=== PATIENT | female | born 1955 | race Caucasian/White ===

== ENCOUNTER 2017-06-13 10:53 | Outpatient (CLI) | payer OTHER ==
[2017-06-13 19:11] LABS: BASOPHILS % (AUTO) 0.9 %; EOSINOPHILS % (AUTO) 0.3 %; HCT - HEMATOCRIT 48.3 % (37.0-47.0); HGB - HEMOGLOBIN 15.9 g/dL (12.0-16.0); LYMPHOCYTES # (AUTO) 1.1 10^3/uL (1.5-3.5); LYMPHOCYTES % (AUTO) 21.1 %; MEAN CORPUSCULAR HEMOGLOBIN 32.2 pg (27.0-31.0); MEAN CORPUSCULAR VOLUME 97.4 fL (81.0-99.0); MEAN PLATELET VOLUME 8.2 fL (7.9-10.8); MONOCYTES # (AUTO) 0.4 10^3/uL (0.0-1.0); MONOCYTES % (AUTO) 8.3 %; NEUTROPHILS # (AUTO) 3.5 10^3/uL (1.5-6.6); NEUTROPHILS % (AUTO) 69.4 %; RED BLOOD COUNT 4.96 10^6/uL (4.20-5.40); RED CELL DISTRIBUTION WIDTH 13.7 % (12.0-15.0); UNCORRECTED WHITE BLOOD COUNT 5.1 x10^3/uL; WHITE BLOOD COUNT 5.1 x10^3/uL (4.8-10.8)
[2017-06-13 19:18] LABS: ALBUMIN/GLOBULIN RATIO 1.4 (1.0-2.2); BILIRUBIN,TOTAL 0.9 mg/dL (0.2-1.0); BUN - BLOOD UREA NITROGEN 11 mg/dL (6-20); CALCIUM 9.8 mg/dL (8.5-10.3); CARBON DIOXIDE - CO2 25 mmol/L (21-32); CHLORIDE 104 mmol/L (101-111); CHOL/HDL RATIO 2.8 (<4.4); CHOLESTEROL 295 mg/dL; CREATININE 0.7 mg/dL (0.4-1.0); GFR - MDRD 85 (>89); GLUCOSE 101 mg/dL (70-100); HDL CHOLESTEROL 107 mg/dL; LDL/HDL RATIO 1.5 (<4.4); POTASSIUM 3.9 mmol/L (3.5-5.0); SODIUM 140 mmol/L (135-145); TRIGLYCERIDES 162 mg/dL; VLDL CHOLESTEROL 32 mg/dL
== END 2017-06-13 10:54 | disposition home or self-care (01) ==
LOC: LAB.WCP 10:53
PROVIDERS: ATTEND Family Medicine
DX: R94.5 Abnormal results of liver function studies (principal); E78.5 Hyperlipidemia, unspecified; I10 Essential (primary) hypertension
CPT/HCPCS: 36415; 80053; 80061; 81001; 85025

== ENCOUNTER 2017-06-17 10:30 | Outpatient (CLI) | payer OTHER ==
[2017-06-17 20:16] LABS: BILIRUBIN,URINE NEGATIVE (NEGATIVE); PH,URINE 5.5 PH (5.0-7.5)
[2017-06-17 20:47] LABS: WBC,URINE 0-3 /HPF (0-5)
== END 2017-06-17 10:31 | disposition home or self-care (01) ==
LOC: LAB.WCP 10:30
PROVIDERS: ATTEND Family Medicine
DX: I10 Essential (primary) hypertension (principal)
CPT/HCPCS: 81001

== ENCOUNTER 2017-06-24 10:27 | Outpatient (CLI) | payer OTHER ==
--- NOTE | 2017-07-01 15:51 | Mammography Report ---
DIGITAL SCREENING MAMMOGRAM: 06/24/2017 CLINICAL INDICATION: A 61-year-old, for screening. COMPARISON: The patient reports having had previous mammograms, but outside films cannot be located. If records in your office indicate where the films were performed, we would be happy to try to obtain them for direct comparison. Otherwise, this will serve as a new baseline. TECHNIQUE: Routine CC and MLO projections were obtained of the breasts. FINDINGS: The breasts demonstrate scattered fibroglandular densities bilaterally. A few coarse, typi cate benign calcifications are present. No suspicious masses, clustered microcalcifications, or mireille ons of architectural distortion are identified. IMPRESSION: BENIGN FINDINGS. RECOMMENDATION: ROUTINE ANNUAL SCREENING UNLESS OTHERWISE CLINICALLY INDICATED. BIRADS CATEGORY 2-BENIGN FINDINGS. STANDARD QUALIFYING STATEMENTS 1. This examination was reviewed with the aid of Computer-Aided Detection (CAD). 2. A negative or benign imaging report should not delay biopsy if clinically suspicious findings are present. Consider surgical consultation if warranted. More than 5% of cancers are not identified by i maging. 3. Dense breasts may obscure an underlying neoplasm. JOB #: [id number] EXT JOB #:[id number]
== END 2017-06-24 10:28 | disposition home or self-care (01) ==
LOC: DI.N 10:27
PROVIDERS: ATTEND Family Medicine
DX: Z12.31 Encounter for screening mammogram for malignant neoplasm of breast (principal)
CPT/HCPCS: 77067

== ENCOUNTER 2018-03-01 13:36 | Outpatient (CLI) | payer OTHER | END 2018-03-01 13:37 | disposition EMS.NT | LOC: EMS 13:36 | PROVIDERS: ATTEND Surgery | DX: R45.89 Other symptoms and signs involving emotional state (principal) ==

== ENCOUNTER 2018-11-02 14:12 | Emergency (ER) | payer MEDICARE, OTHER ==
--- NOTE | 2018-11-02 14:48 | ED Physician Documentation ---
History of Present Illness - Stated complaint Stated Complaint: CONFUSION - Chief complaint Chief Complaint: Neuro - History obtained from History obtained from: Patient, Friend - History of Present Illness Timing: Unknown Pain level max: 0 Pain level now: 0 - Additonal information Additional information: Patient is a 63-year-old female who was brought in by her friend today for altered mental status. Friend reports that she is "talking gibberish". States that she is stating things that are not through and remembering things that did not happen. Friend states that she has fallen several times recently. Does have a history of alcoholism as well as drug abuse. They are unsure if she is drinking again or not. Her apparently in February of last year, patient was hospitalized at [facility] in [place] after that and had a heart attack followed by a stroke. Has [address] Unknown if she is taking her medications or not. Patient is unable to give any meaningful history at this point. Review of Systems Unable to obtain: AMS PD PAST MEDICAL HISTORY - Past Medical History Past Medical History: Yes Cardiovascular: Hypertension, [place] Neuro: CVA Psych: Depression - Past Surgical History Past Surgical History: Yes Cardiovascular: Coronary stent - Present Medications Home Medications: Ambulatory Orders Medication Instructions Recorded Confirmed Acetaminophen 650 mg PO ONCE 11/02/18 11/02/18 Carvedilol 25 mg PO BID 11/02/18 11/02/18 Clopidogrel [Plavix] 75 mg ORAL DAILY 11/02/18 11/02/18 Lisinopril [Prinivil] 20 mg PO DAILY 11/02/18 11/02/18 - Allergies Allergies/Adverse Reactions: Allergies Allergy/AdvReac Type Severity Reaction Status Date / Time No Known Drug Allergies Allergy Verified 11/02/18 14:23 - Social History Does the pt smoke?: No Smoking Status: Never smoker Does the pt drink ETOH?: Yes Does the pt have substance abuse?: No - Immunizations Immunizations are current?: No - POLST Patient has POLST: No PD ED PE NORMAL - Vitals Vital signs reviewed: Yes - General General: No acute distress, Well developed/nourished, Other (alert, oriented to person and place) - HEENT HEENT: PERRL, Moist mucous membranes, Pharynx benign - Neck Neck: Supple, no meningeal sign - Cardiac Cardiac: RRR, Strong equal pulses - Respiratory Respiratory: No respiratory distress, Clear bilaterally - Abdomen Abdomen: Soft, Non tender, Non distended - Back Back: No spinal TTP - Derm Derm: Warm and dry - Extremities Extremities: No deformity, Normal ROM s pain, No edema - Neuro Neuro: academic support specialist 2-12 intact, No motor deficit, No sensory deficit Eye Opening: Spontaneous Motor: Obeys Commands Verbal: Confused GCS Score: 14 Results - Vitals Vitals: Vital Signs - 24 hr 11/02/18 11/02/18 11/02/18 14:21 15:12 16:00 Temperature 36.9 C Heart Rate 115 H 102 H 101 H Respiratory 18 22 22 Rate Blood Pressure 120/89 H 125/85 H 151/83 H O2 Saturation 96 95 96 11/02/18 11/02/18 11/02/18 16:51 17:08 17:46 Temperature 36.8 C Heart Rate 105 H 111 H 112 H Respiratory 21 19 24 Rate Blood Pressure 136/85 H 139/85 H 129/78 O2 Saturation 98 95 96 Oxygen O2 Source Room air - EKG (time done) 1457 Rate: Rate (enter#) (96) Rhythm: NSR [place]: Normal Intervals: Normal SC QRS: Normal Ischemia: Normal ST segments - Labs Labs: Laboratory Tests 11/02/18 11/02/18 11/02/18 15:00 15:00 15:00 WBC 15.2 H RBC 2.97 L Hgb 10.0 L Hct 30.7 L MCV 103.5 H MCH 33.6 H MCHC 32.5 RDW 14.2 Plt Count 276 MPV 7.6 L Neut # (Auto) 13.4 H Lymph # (Auto) 0.7 L Parke # (Auto) 0.9 Eos # (Auto) 0.0 Baso # (Auto) 0.1 Absolute Nucleated RBC 0.00 Nucleated RBC % 0.0 Sodium 139 Potassium 3.2 L Chloride 103 Carbon Dioxide 25 Anion Gap 11.0 BUN 47 H Creatinine 1.0 Estimated GFR (MDRD) 56 L Glucose 129 H Calcium 9.1 Total Bilirubin 1.0 AST 60 H ALT 30 Alkaline Phosphatase 63 Total Protein 7.3 Albumin 4.3 Globulin 3.0 Albumin/Globulin Ratio 1.4 Lipase 46 TSH 1.94 Salicylates < 6.0 Acetaminophen 21 Ethyl Alcohol < 5.0 - Rads (name of study) head CT Radiology: Prelim report reviewed, EMP read contemporaneously, See rad report (Intraparenchymal hematoma in the anteroinferior right frontal lobe and scattered subarachnoid hemorrhage with extension into the frontal horns of the bilateral lateral ventricles. Appearance and distribution are suspicious for aneurysmal bleed involving the anterior cerebral artery or anterior communicating artery. 2. Approximately 13 mm right to left anteroinferior midline shift/subfalcine herniation associated with the intraparenchymal hematoma. ) brain angio CT Radiology: Prelim report reviewed, EMP read contemporaneously, See rad report (No abnormal enhancement on the postcontrast CT head. No CT evidence of active extravasation to suggest active bleed. 3. No CTA evidence of hemodynamically significant stenosis, large vessel occlusion, acute dissection, aneurysm, or vascular malformation within extracranial or intracranial arteries. In particular, no aneurysm or vascular malformation to suggest etiology for hemorrhage. Concurrently obtained CTA of the neck is dictated separately. ) neck angio CT Radiology: Prelim report reviewed, EMP read contemporaneously, See rad report (No CTA evidence of hemodynamically significant stenosis, large vessel occlusion, acute dissection, aneurysm, or vascular malformation within extracranial arteries. 2. Concurrently obtained CTA head has been dictated separately. ) PD MEDICAL DECISION MAKING - ED course Complexity details: reviewed results, re-evaluated patient, considered differential, d/w patient, d/w software developer consultant ED course: 1550 - call placed to [facility] for transfer for spontaneous ICH. 1600 - Patient remains stable, GCS 14 no neuro changes 1610 - Prov Nsgy recommends transfer to [facility] 1640 - Dr. Madai Cuello (ICU) graciously accepts in transfer. COBRA forms filled out. 1645 - D/w neurosurgery at [facility] and they will consult upon arrival. Nicardipine used for blood pressure to keep SBP <140. 1645 - Patient continues to be altered. No neurological changes at this point. [facility] contacted for transfer - Critical Care Time(min): 50 Time Includes: Direct patient care, Reassess patient, Document care, Coordinate care, See progress note Data interpretation: See progress note Procedures included in critical care time: See progress note Procedures excluded from critical care time: See progress note Departure - Departure Disposition: 02 Transfer Acute Care Hosp Clinical Impression: Intracerebral hemorrhage Qualifiers: Intracerebral hemorrhage etiology: nontraumatic Cerebral hemorrhage location: unspecified cerebral location Laterality: right Qualified Code(s): I61.9 - Nontraumatic intracerebral hemorrhage, unspecified Condition: Stable Discharge Date/Time: 11/02/18 18:04 NIHSS - Time Time: 14:42 - Level of Consciousness Level of consciousness: (0) Alert, Keenly responsive LOC Questions: (1) Answers one Q correctly LOC Commands: (0) Performs both correctly - Gaze Best Gaze: (0) Normal - Visual Visual: (0) No loss - Facial Palsy Facial Palsy: (0) Normal, symmetrical movement - Motor Arms (both separate) Motor Arm (right): (0) No drift Motor Arm (left): (0) No drift - Motor Legs (both separate) Motor Leg (right): (0) No drift Motor Leg (left): (0) No drift - Limb Ataxia Limb Ataxia: (0) Absent - Sensory Sensory: (0) Normal - Best Language Best Language: (0) No aphasia - Dysarthria Dysarthria: (0) Normal - Extinction and Inattention (formally neg Extinction and inattention: (0) No abnormality - Total Score/Results Total Score/Result: 1
[2018-11-02 15:12] LABS: BASOPHILS # (AUTO) 0.1 10^3/uL (0.0-0.1); BASOPHILS % (AUTO) 0.5 %; LYMPHOCYTES # (AUTO) 0.7 10^3/uL (1.5-3.5); LYMPHOCYTES % (AUTO) 4.6 %; MEAN CORPUSCULAR HEMOGLOBIN 33.6 pg (27.0-31.0); MEAN CORPUSCULAR HGB CONC 32.5 g/dL (32.0-36.0); MEAN CORPUSCULAR VOLUME 103.5 fL (81.0-99.0); MEAN PLATELET VOLUME 7.6 fL (7.9-10.8); MONOCYTES # (AUTO) 0.9 10^3/uL (0.0-1.0); MONOCYTES % (AUTO) 6.2 %; NEUTROPHILS # (AUTO) 13.4 10^3/uL (1.5-6.6); NEUTROPHILS % (AUTO) 88.7 %; PLT - PLATELET COUNT 276 10^3/uL (130-450); RED BLOOD COUNT 2.97 10^6/uL (4.20-5.40); RED CELL DISTRIBUTION WIDTH 14.2 % (12.0-15.0); WHITE BLOOD COUNT 15.2 x10^3/uL (4.8-10.8)
[2018-11-02 15:29] LABS: ACETAMINOPHEN 21 ug/mL (10-30); ALBUMIN 4.3 g/dL (3.2-5.5); ALBUMIN/GLOBULIN RATIO 1.4 (1.0-2.2); ALKALINE PHOSPHATASE 63 IU/L (42-121); ALT ALANINE AMINOTRANSFERASE 30 IU/L (10-60); AST ASPARTATE AMINOTRANSFERASE 60 IU/L (10-42); BUN - BLOOD UREA NITROGEN 47 mg/dL (6-20); CALCIUM 9.1 mg/dL (8.5-10.3); CARBON DIOXIDE - CO2 25 mmol/L (21-32); CHLORIDE 103 mmol/L (101-111); GFR - MDRD 56 (>89); GLUCOSE 129 mg/dL (70-100); LIPASE 46 U/L (22-51); SALICYLATE < 6.0 mg/dL; SODIUM 139 mmol/L (135-145); TOTAL PROTEIN 7.3 g/dL (6.7-8.2)
--- NOTE | 2018-11-02 16:05 | CT Report ---
Reason: ALOC, fall, pt takes plavix Procedure Date: 11/02/2018 Accession Number: [id number] / [id number] Procedure: CT - Head W/O CPT Code: FULL RESULT: EXAM: CT HEAD EXAM DATE: 11/02/2018 03:34 PM. CLINICAL HISTORY: Altered level of consciousness. Fall. On Plavix. COMPARISON: None. TECHNIQUE: Multiaxial CT images were obtained from the foramen magnum to the vertex. Reformats: Sagittal and coronal. IV contrast: None. In accordance with CT protocol optimization, one or more of the following dose reduction techniques were utilized for this exam: automated exposure control, adjustment of mA and/or KV based on patient size, or use of iterative reconstructive technique. FINDINGS: Parenchyma: Irregularly shaped intraparenchymal hematoma centered in the anteroinferior right frontal lobe, the largest component measuring approximately 4.8 x 3.0 cm in axial dimension and 3.6 cm craniocaudal (axial image 10, coronal image 12), with adjacent vasogenic edema. Moderate patchy white matter hypoattenuation, compatible with chronic small vessel ischemic change. Swanson-white matter differentiation is intact. Extraaxial Spaces: Scattered subarachnoid hemorrhage, including along the anterior falx, in the left frontal and right insular and medial temporal sulci, and in the suprasellar cistern tracking into the sylvian fissures, ambien cistern, and left greater than right pontocerebellar cisterns. Ventricles: Approximately 13 mm right to left anteroinferior midline shift/subfalcine herniation. Adjacent to the intraparenchymal hematoma. Intraventricular hemorrhage in the frontal horns of the bilateral lateral ventricles. No hydrocephalus. Sinuses and Orbits: Imaged paranasal sinuses, orbits, and mastoids show no significant abnormality. Bones: No evidence of fracture or calvarial defect. Other: The visualized superficial soft tissues are unremarkable; no hematoma or edema is evident. Atherosclerotic calcifications in the bilateral cavernous internal carotid arteries. IMPRESSION: 1. Intraparenchymal hematoma in the anteroinferior right frontal lobe and scattered subarachnoid hemorrhage with extension into the frontal horns of the bilateral lateral ventricles. Appearance and distribution are suspicious for aneurysmal bleed involving the anterior cerebral artery or anterior communicating artery. 2. Approximately 13 mm right to left anteroinferior midline shift/subfalcine herniation associated with the intraparenchymal hematoma. RADIA The above findings were discussed with Ethan Gomez by Dr. Sue Mckeon at 15:55 Hrs on 11/02/18.
[2018-11-02] MEDS ORDERED: SODIUM CHLORIDE 0.9% 1,000 ML IV ONE (16:06)
[2018-11-02] MEDS ORDERED: IOVERSOL 320 100 ML VIAL IVP ONE ×3 (16:15→16:56)
[2018-11-02] MEDS ORDERED: niCARdipine 20 MG/200 ML 20 MG/200 ML BAG IV STA (16:42)
--- NOTE | 2018-11-02 17:32 | CT Report ---
Reason: intracerebral bleed Procedure Date: 11/02/2018 Accession Number: [id number] / [id number] Procedure: CT - Head Angio CPT Code: FULL RESULT: EXAM: CT ANGIOGRAM HEAD. CT SCAN OF THE HEAD WITH CONTRAST. EXAM DATE: 11/02/2018 04:36 PM CLINICAL HISTORY: 63-year-old female. Intracerebral bleed. COMPARISON: CT head 11/02/2018 TECHNIQUE: - CT Scan Head: Using a multidetector scanner, axial images were acquired from the foramen magnum to the skull vertex following contrast administration. - CT Angiogram: Using a multidetector scanner, high-resolution axial images were acquired from the skull base through vertex following rapid infusion of intravenous contrast. Reformats: Multiplanar MIP reformats were reconstructed. Nascet criteria used for stenosis measurement. IV Contrast: ISOVUE 300 80mL. In accordance with CT protocol optimization, one or more of the following dose reduction techniques were utilized for this exam: automated exposure control, adjustment of mA and/or KV based on patient size, or use of iterative reconstructive technique. FINDINGS: NON-CONTRAST HEAD: Concurrently obtained noncontrast CT head has been dictated separately. POST-CONTRAST HEAD: No abnormal enhancement. There are no evidence of active extravasation to suggest active bleeding CT ANGIOGRAM HEAD: Mild atherosclerosis right carotid siphon, no hemodynamically significant stenosis. Mild atherosclerosis left carotid siphon, maximal stenosis 20-30%. The posterior communicating arteries are not clearly visualized on either side, likely hypoplastic or aplastic. The visualized distal vertebral arteries are unremarkable. The basilar artery is unremarkable. The left SHEARING SHED HAND is unremarkable. The right SHEARING SHED HAND is unremarkable. The right MCA is unremarkable. The ACAs bilaterally are unremarkable. The left MCA is unremarkable. DURAL VENOUS SINUSES AND MAJOR CENTRAL VEINS: Patent. IMPRESSION: 1. Concurrently obtained noncontrast CT head has been dictated separately. 2. No abnormal enhancement on the postcontrast CT head. No CT evidence of active extravasation to suggest active bleed. 3. No CTA evidence of hemodynamically significant stenosis, large vessel occlusion, acute dissection, aneurysm, or vascular malformation within extracranial or intracranial arteries. In particular, no aneurysm or vascular malformation to suggest etiology for hemorrhage. 4. Concurrently obtained CTA of the neck is dictated separately. RADIA
--- NOTE | 2018-11-02 17:37 | CT Report ---
Reason: intracerebral bleed Procedure Date: 11/02/2018 Accession Number: [id number] / [id number] Procedure: CT - Neck Angio CPT Code: FULL RESULT: EXAM: CT ANGIOGRAM NECK EXAM DATE: 11/02/2018 04:36 PM. CLINICAL HISTORY: 63-year-old female. Intracerebral bleed. COMPARISON: HEAD W/O 11/02/2018 3:24 PM. TECHNIQUE: Routine axial helical imaging was performed from the skull base through the aortic arch. Reconstructions: Routine multiplanar 3D MIP reconstructions. IV Contrast: ISOVUE 300 80mL. Evaluation of arterial stenosis is based on a NASCET method of measurement. In accordance with CT protocol optimization, one or more of the following dose reduction techniques were utilized for this exam: automated exposure control, adjustment of mA and/or KV based on patient size, or use of iterative reconstructive technique. FINDINGS: Right Carotid: The common carotid, internal carotid, and external carotid arteries are widely patent. No dissection, significant atherosclerotic plaque, or calcification identified. Left Carotid: Mild atherosclerosis left carotid bifurcation and left carotid bulb, no hemodynamically significant stenosis. Partially retropharyngeal course of the left common carotid artery The common carotid, internal carotid, and external carotid arteries are widely patent. No dissection, significant atherosclerotic plaque, or calcification identified. Vertebrals: The vertebrobasilar system shows no stenoses. Intracranial Circulation: Concurrently obtained CTA of the head is dictated separately. Other: The visualized lung apices are clear. Mild multilevel degenerative spondylosis of the visualized spine, no acute fracture or malalignment. The visualized soft tissues of the neck demonstrate no acute abnormality. IMPRESSION: 1. No CTA evidence of hemodynamically significant stenosis, large vessel occlusion, acute dissection, aneurysm, or vascular malformation within extracranial arteries. 2. Concurrently obtained CTA head has been dictated separately. RADIA
[2018-11-02 17:46] VITALS: BP 129/78
== END 2018-11-02 18:04 | disposition short-term general hospital (02) ==
LOC: ED 14:12
DX: I61.9 Nontraumatic intracerebral hemorrhage, unspecified (principal); I25.2 Old myocardial infarction; I10 Essential (primary) hypertension; Z86.73 Personal history of transient ischemic attack (TIA), and cerebral infarction without residual deficits; Z91.81 History of falling
CPT/HCPCS: 36415; 70450; 70496; 70498; 80053; 83690; 84443; 85025; 93005; 96361; 96365; 99284; 99291; Q9967; 80307; 80320; 80329; 99285

== ENCOUNTER 2018-12-08 08:00 | Outpatient (CLI) | payer MEDICARE ==
[2018-12-08 19:55] LABS: ALBUMIN 3.4 g/dL (3.2-5.5); ALBUMIN/GLOBULIN RATIO 0.9 (1.0-2.2); BILIRUBIN,TOTAL 0.3 mg/dL (0.2-1.0); CALCIUM 9.1 mg/dL (8.5-10.3); CREATININE 0.5 mg/dL (0.4-1.0)
== END 2018-12-08 23:59 | disposition home or self-care (01) ==
LOC: LAB.WCP 08:00
PROVIDERS: ATTEND Family Medicine
DX: I25.10 Atherosclerotic heart disease of native coronary artery without angina pectoris (principal); F10.10 Alcohol abuse, uncomplicated; I63.9 Cerebral infarction, unspecified
CPT/HCPCS: 36415; 80053

== ENCOUNTER 2019-01-22 10:53 | Outpatient (CLI) | payer MEDICARE ==
--- NOTE | 2019-01-22 12:39 | CT Report ---
Reason: SAH,ACUTE ENCEPHALOPATHY Procedure Date: 01/22/2019 Accession Number: [id number] / [id number] Procedure: CT - HEAD WO CPT Code: FULL RESULT: EXAM: CT HEAD EXAM DATE: 01/22/2019 11:10 AM. CLINICAL HISTORY: SAH,ACUTE ENCEPHALOPATHY. COMPARISON: CT HEAD WITHOUT CONTRAST 11/03/2018 2:47 AM. TECHNIQUE: Multiaxial CT images were obtained from the foramen magnum to the vertex. Reformats: Sagittal and coronal. IV contrast: None. In accordance with CT protocol optimization, one or more of the following dose reduction techniques were utilized for this exam: automated exposure control, adjustment of mA and/or KV based on patient size, or use of iterative reconstructive technique. FINDINGS: Parenchyma: Previously seen acute intracranial blood has resolved. At the site of parenchymal hemorrhage in the right frontal lobe is now an area of encephalomalacia. Swanson-white matter differentiation is preserved. Extraaxial Spaces: No subdural or epidural collections identified. Ventricles: Stable ventricular configuration with preserved basal cisterns. Sinuses and Orbits: Visualized orbits are unremarkable. There is partial opacification of the visualized ethmoid air cells. Bones: No evidence of fracture or calvarial defect. Other: None. IMPRESSION: Interval resolution of parenchymal and subarachnoid hemorrhage with development of encephalomalacia in the right frontal distribution, expected evolution. Partial opacification of ethmoid air cells. RADIA
== END 2019-01-22 10:54 | disposition home or self-care (01) ==
LOC: DI 10:53
PROVIDERS: ATTEND Neurological Surgery
DX: I60.9 Nontraumatic subarachnoid hemorrhage, unspecified (principal); G93.40 Encephalopathy, unspecified; G93.89 Other specified disorders of brain
CPT/HCPCS: 70450

== ENCOUNTER 2021-04-19 08:39 | Outpatient (CLI) | payer MEDICARE ==
[2021-04-19 12:03] LABS: BASOPHILS % (AUTO) 0.6 %; EOSINOPHILS # (AUTO) 0.2 10^3/uL (0.0-0.7); HCT - HEMATOCRIT 41.4 % (37.0-47.0); HGB - HEMOGLOBIN 12.6 g/dL (12.0-16.0); LYMPHOCYTES # (AUTO) 2.1 10^3/uL (1.5-3.5); LYMPHOCYTES % (AUTO) 33.4 %; MEAN CORPUSCULAR HGB CONC 30.4 g/dL (32.0-36.0); MEAN CORPUSCULAR VOLUME 95.4 fL (81.0-99.0); MONOCYTES # (AUTO) 0.4 10^3/uL (0.0-1.0); MONOCYTES % (AUTO) 6.1 %; NEUTROPHILS # (AUTO) 3.6 10^3/uL (1.5-6.6); NEUTROPHILS % (AUTO) 56.7 %; PLT - PLATELET COUNT 279 10^3/uL (130-450); RED BLOOD COUNT 4.34 10^6/uL (4.20-5.40); RED CELL DISTRIBUTION WIDTH 14.8 % (12.0-15.0); WHITE BLOOD COUNT 6.4 x10^3/uL (4.8-10.8)
[2021-04-19 12:09] LABS: ALBUMIN 4.1 g/dL (3.2-5.5); ALBUMIN/GLOBULIN RATIO 1.4 (1.0-2.2); ALKALINE PHOSPHATASE 68 IU/L (42-121); ALT ALANINE AMINOTRANSFERASE 20 IU/L (10-60); AST ASPARTATE AMINOTRANSFERASE 18 IU/L (10-42); BILIRUBIN,TOTAL 0.5 mg/dL (0.2-1.0); BUN - BLOOD UREA NITROGEN 14 mg/dL (6-20); CARBON DIOXIDE - CO2 26 mmol/L (21-32); CHLORIDE 106 mmol/L (101-111); CHOL/HDL RATIO 2.4 (<4.4); CHOLESTEROL 166 mg/dL; CREATININE 0.7 mg/dL (0.4-1.0); GFR - MDRD 83 (>89); GLUCOSE 108 mg/dL (70-100); HDL CHOLESTEROL 69 mg/dL; LDL CHOLESTEROL,CALCULATED 77 mg/dL; LDL/HDL RATIO 1.1 (<4.4); POTASSIUM 4.2 mmol/L (3.5-5.0); SODIUM 140 mmol/L (135-145); TOTAL PROTEIN 7.1 g/dL (6.7-8.2); TRIGLYCERIDES 102 mg/dL; VLDL CHOLESTEROL 20 mg/dL
== END 2021-04-19 23:59 | disposition home or self-care (01) ==
LOC: LAB.WCP 08:39
PROVIDERS: ATTEND Family Medicine
DX: I25.10 Atherosclerotic heart disease of native coronary artery without angina pectoris (principal)
CPT/HCPCS: 36415; 80053; 80061; 83721; 85025

== ENCOUNTER 2023-10-11 12:22 | Outpatient (CLI) | payer MEDICARE | END 2023-10-11 12:23 | disposition critical access hospital (66) | LOC: EMS 12:22 | DX: R47.01 Aphasia (principal) | CPT/HCPCS: A0425; A0429 ==

== ENCOUNTER 2023-10-11 12:32 | Inpatient (IN) | payer MEDICARE ==
--- NOTE | 2023-10-11 12:33 | ED Physician Documentation ---
PD HPI FOCAL NEURO - Stated complaint Stated Complaint: CODE STROKE - History obtained from History obtained from: Patient, Family (family member checked on patient and found her confused and agitated. Nonverbal. Moving all extremities though. It appeared she had been up and had breakfast sometime, but unknown onset time of symptoms. 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.) Timing - duration: Hours Timing - details: Other (unknown onset pattern and timing.) Time of symptom onset unknown: Time of onset unknown Severity of deficit: Severe Weakness: No: Face, Arm, Leg Numbness: No: Face, Arm, Leg Associated symptoms: No: Seizure, Head injury Contributing factors: negative: Anticoagulated Baseline status: positive: A&OX3, ambulatory, indep Similar symptoms before: Has not had sx before Recently seen: Not recently seen Review of Systems Unable to obtain: AMS PD PAST MEDICAL HISTORY - Past Medical History Cardiovascular: Hypertension, [place] Neuro: CVA Endocrine/Autoimmune: None Psych: Depression - Past Surgical History Past Surgical History: Yes Cardiovascular: Coronary stent - Present Medications Home Medications: Ambulatory Orders Medication Instructions Recorded Confirmed Carvedilol 25 mg PO BID 11/02/18 10/11/23 lisinopriL [Prinivil] 5 mg PO DAILY 11/02/18 10/11/23 Aspirin [Aspirin EC] 81 mg PO DAILY 10/11/23 10/11/23 - Allergies Allergies/Adverse Reactions: Allergies Allergy/AdvReac Type Severity Reaction Status Date / Time No Known Drug Allergies Allergy Verified 10/11/23 13:13 - Social History Does the pt smoke?: No Smoking Status: Never smoker Does the pt drink ETOH?: Yes Does the pt have substance abuse?: No - Immunizations Immunizations are current?: No - POLST Patient has POLST: No PD ED PE NORMAL - Vitals Vital signs reviewed: Yes - General General: Well developed/nourished, Other (blank stare when I talk to her but does look towrd me. No verbal response attempted. Agitated and picking at monitor leads, IV, rails. Moving all extremities. ) - HEENT HEENT: Atraumatic - Cardiac Cardiac: RRR, No murmur - Respiratory Respiratory: Clear bilaterally - Abdomen Abdomen: Soft, Non tender NIHSS - Level of Consciousness Level of consciousness: (1) Not alert, but arousable by minor stimulation to obey, or answer LOC Questions: (2) Answers neither correct LOC Commands: (1) Performs one correctly - Gaze Best Gaze: (0) Normal - Visual Visual: (0) No loss - Facial Palsy Facial Palsy: (0) Normal, symmetrical movement - Motor Arms (both separate) Motor Arm (right): (0) No drift Motor Arm (left): (0) No drift - Motor Legs (both separate) Motor Leg (right): (0) No drift Motor Leg (left): (0) No drift - Limb Ataxia Limb Ataxia: (0) Absent - Sensory Sensory: (0) Normal - Best Language Best Language: (2) Severe aphasia - Dysarthria Dysarthria: (0) Normal - Extinction and Inattention (formally neg Extinction and inattention: (1) Visual,tactile,auditory,spatial, or personal inattention - Total Score/Results Total Score/Result: 7 Results - Vitals Vitals: Vital Signs - 24 hr 10/11/23 10/11/23 10/11/23 13:06 14:20 15:00 Temperature 36.5 C Heart Rate 101 H 105 H 117 H Respiratory 20 20 18 Rate Blood Pressure 155/100 H 146/98 H 161/137 H O2 Saturation 96 99 96 10/11/23 10/11/23 10/11/23 15:50 18:21 18:45 Temperature 37.2 C 36.5 C Heart Rate 122 H 128 H 99 Respiratory 20 24 21 Rate Blood Pressure 182/125 H 188/120 H 179/121 H O2 Saturation 97 95 93 10/11/23 10/11/23 10/11/23 19:30 19:37 19:45 Temperature Heart Rate 110 H 100 96 Respiratory 18 19 18 Rate Blood Pressure 182/117 H 177/120 H 164/104 H O2 Saturation 94 96 92 10/11/23 10/11/23 10/11/23 20:00 20:30 21:00 Temperature Heart Rate 95 103 H 108 H Respiratory 15 18 23 Rate Blood Pressure 155/98 H 150/97 H 157/103 H O2 Saturation 95 96 92 10/11/23 10/11/23 21:30 22:30 Temperature Heart Rate 97 96 Respiratory 21 15 Rate Blood Pressure 167/112 H 182/122 H O2 Saturation 95 95 Oxygen O2 Source Room air - EKG (time done) 13:04 EKG releavant findings:: EKG personally interpreted by author of this note. Relevant findings are: Rate: Rate (enter#) (111) Rhythm: Sinus tachycardia [place]: Normal Intervals: Normal DE Ischemia: Normal ST segments. No: ST elevation c/w ischemia, ST depression Compare to prior EKG: Old EKG unavailable - Labs Labs: Laboratory Tests 10/11/23 10/11/23 10/11/23 13:07 13:15 13:41 WBC 11.5 H RBC 5.01 Hgb 15.9 Hct 50.5 H MCV 100.8 H MCH 31.7 H MCHC 31.5 L RDW 14.9 Plt Count 222 MPV 10.2 Neut # (Auto) 10.2 H Lymph # (Auto) 0.6 L Calhoun # (Auto) 0.6 Eos # (Auto) 0.0 Baso # (Auto) 0.0 Absolute Nucleated RBC 0.00 Nucleated RBC % 0.0 ESR Sodium Potassium Chloride Carbon Dioxide Anion Gap BUN Creatinine Estimated GFR (MDRD) Glucose POC Whole Bld Glucose 119 H Calcium Magnesium Total Bilirubin AST ALT Alkaline Phosphatase Total Protein Albumin Globulin Albumin/Globulin Ratio Lipase Urine Color YELLOW Urine Clarity CLEAR Urine pH 5.5 Ur Specific Stanton 1.025 Urine Protein NEGATIVE Urine Glucose (UA) NEGATIVE Urine Ketones 40 H Urine Occult Blood NEGATIVE Urine Nitrite NEGATIVE Urine Bilirubin NEGATIVE Urine Urobilinogen 0.2 (NORMAL) Ur Leukocyte Esterase NEGATIVE Ur Microscopic Review NOT INDICATED Urine Culture Comments NOT INDICATED Salicylates Urine Opiates Screen NEGATIVE Ur Oxycodone Screen NEGATIVE Urine Methadone Screen NEGATIVE Ur Propoxyphene Screen NEGATIVE Acetaminophen Ur Barbiturates Screen NEGATIVE Ur Tricyclics Screen NEGATIVE Ur Phencyclidine Scrn NEGATIVE Ur Amphetamine Screen NEGATIVE U Methamphetamines Scrn NEGATIVE U Benzodiazepines Scrn NEGATIVE Urine Cocaine Screen NEGATIVE U Cannabinoids Screen NEGATIVE Ethyl Alcohol 10/11/23 10/11/23 13:41 13:41 WBC RBC Hgb Hct MCV MCH MCHC RDW Plt Count MPV Neut # (Auto) Lymph # (Auto) [place] # (Auto) Eos # (Auto) Baso # (Auto) Absolute Nucleated RBC Nucleated RBC % ESR 5 Sodium 142 Potassium 3.4 L Chloride 103 Carbon Dioxide 19 L Anion Gap 20.0 H BUN 13 Creatinine 0.9 Estimated GFR (MDRD) 62 L Glucose 107 H POC Whole Bld Glucose Calcium 9.5 Magnesium 2.1 Total Bilirubin 0.7 AST 92 H ALT 67 H Alkaline Phosphatase 120 Total Protein 6.9 Albumin 4.2 Globulin 2.7 Albumin/Globulin Ratio 1.6 Lipase 25 Urine Color Urine Clarity Urine pH Ur Specific Stanton Urine Protein Urine Glucose (UA) Urine Ketones Urine Occult Blood Urine Nitrite Urine Bilirubin Urine Urobilinogen Ur Leukocyte Esterase Ur Microscopic Review Urine Culture Comments Salicylates < 1.5 Urine Opiates Screen Ur Oxycodone Screen Urine Methadone Screen Ur Propoxyphene Screen Acetaminophen 1.3 Ur Barbiturates Screen Ur Tricyclics Screen Ur Phencyclidine Scrn Ur Amphetamine Screen U Methamphetamines Scrn U Benzodiazepines Scrn Urine Cocaine Screen U Cannabinoids Screen Ethyl Alcohol < 10.0 - Rads (name of study) head CT Relevant Findings:: Prelim report reviewed, Discussed with rads, EMP independent interpretation of test (inital CT with too much motion artifact for reading. ) CT head with angio Relevant Findings:: Prelim report reviewed (No ICH. Old CVA noted. No new CVA noted. Angio portion without LVO. ), EMP independent interpretation of test PD Medical Decision Making - ED course Complexity details: considered differential (Patient presents with aphasia and agitation and confusion. Considerations for intracranial bleed, stroke, electrolyte or metabolic disorder, toxicity or withdrawal.), d/w patient, d/w presales consultant (Stroke Neurology - pt is out of time window for lytics and not clear if stroke clearly, also no LVO for intervention. Supportive care, fluids, eval for other causes, MRI. ) Reviewed Lab Results: No intracranial hemorrhage nor signs of edema or mass effect. Basic blood tests of electrolytes in particular sodium as well as blood count and sed rate are normal. Urine tox screen is negative. Alcohol level is negative. She does not appear to be in withdrawal per se as more fidgety and not tremorous per se. Family states she has been sober for 3 years or so. At this point we will presume a effect of a new stroke. There were no beds available at our facility so we will be continuing treatment here with fluids and medication for agitation as well as blood pressure control. We can look for transfer though more likely will be trying to admit in the morning at a facility. ED course: The patient presented by EMS with aphasia confusion and poor interaction. Also agitated. No tremors per se. Family members report to EMS that they found the patient in this state at home. It had appeared that she had made breakfast and was dressed so likely was okay earlier in the morning. Unclear the onset of time, could be up to 4 to 5 hours at this point. Initial attempt at a CT scan had significant motion artifact with the patient having been evaluated just at the door and went immediately to CT. She came back to the ER we did give doses of diazepam and Inapsine to help with calming. She was less fidgety and able to rest some and is still position. She was still agitated enough to be pulling at her IV and monitor leads so soft restraints were placed. With enough medication to allow for resting quietly when left alone, we did repeat the CT scan were able to get a CT noncontrast as well as angios. The CT scan did not show any acute bleed swelling or mass effect. No signs of new stroke. Prior strokes were identified. The angiogram portion showed no large vessel occlusion. As such no acute interventions are indicated. I did talk with stroke neurology and they affirmed no interventions. The patient's main blood tests were normal with a normal sodium in particular and no other acute electrolyte problems except for mild low potassium at 3.4. Talk screen was negative. Alcohol level was negative as well. The patient's sister who is a nurse is present now in the ER and I talked with her. She affirms the patient had had prior problems with alcoholism but has been sober for 3 years and they do interact frequently. No other substance use recently. No change in medicines. At this point no clear cause metabolically nor toxicity. As such I would presume a new stroke type issue. When talking with stroke neurology, a anterior middle cerebral distribution could affect the language as well as the mentation. Suggested MRI. At this point we do not have MRI for the evening and she is too much movement right now for that anyway. Will be more effective likely tomorrow. We do not have any beds available in our hospital right now due to nurse staffing on the floor. The patient will be here in the ER for now. We will continue with supportive care with fluids and medication for agitation. Her blood pressure is remained approximately 1 90-210 systolic over the last hour or 2. We will treat with metoprolol as well as antianxiety medicines. Repeat dosing of medicines with a target of approximately 160 systolic. There is no signs of edema on CT scan side do not believe just a hypertensive emergency more but more likely a stroke syndrome. We will look for outside facilities to have beds available for transfer but it may be the patient is here in the ER overnight until staffing is improved in the morning. I did discuss of the patient's sister who was understanding. Departure - Departure Disposition: 66 [facility] DC/Xfer Clinical Impression: Aphasia due to acute stroke, Cerebrovascular accident (CVA), Hypertension Condition: Stable Record reviewed to determine appropriate education?: Yes
--- NOTE | 2023-10-11 13:17 | CT Report ---
PROCEDURE: Head W/O Stroke Protocol INDICATIONS: aphasia and confusion this morning TECHNIQUE: Noncontrast 4.5 mm thick angled axial sections acquired from the foramen magnum to the vertex, with c oronal reformats. For radiation dose reduction, the following was used: automated exposure control, adjustment of mA and/or kV according to patient size. COMPARISON: Head CT 01/22/2019. FINDINGS: Image quality: Poor. Quality of exam is significantly degraded by motion artifact. Quality of exam is significantly degraded by patient motion artifact. Redemonstration of encephalomal acia in the right frontal lobe. No large territorial infarct or large intracranial hemorrhage visuali zed at the level of the septum pellucidum and superior aspect of the frontal and parietal lobes. Daphne linda of the brain parenchyma and extra-axial spaces cannot be adequately evaluated. IMPRESSION: Quality of exam is significantly degraded by patient motion artifact. Redemonstration of right fronta l lobe encephalomalacia. No large territorial infarct or intracranial hemorrhage visualized at the le kylee of the septum pellucidum and superior aspect of the frontal and parietal lobes. Results were communicated to ordering provider Dr. Green by Dr. Atkinson at 1:12 PM on 10/11/2023. Reviewed by: Sarah Atkinson MD on 10/11/2023 1:16 PM PST Approved by: Sarah Atkinson MD on 10/11/2023 1:16 PM PST Station ID: [id number]
[2023-10-11 13:21] LABS: MUDS CUTOFF CONCENTRATIONS CUTOFF CONC BELOW:
[2023-10-11 13:24] LABS: BILIRUBIN,URINE NEGATIVE (NEGATIVE); GLUCOSE, URINE (UA) NEGATIVE (NEGATIVE); KETONES,URINE (UA) 40 mg/dL (NEGATIVE); LEUKOCYTE ESTERASE, URINE NEGATIVE (NEGATIVE); NITRITE,URINE NEGATIVE (NEGATIVE); OCCULT BLOOD,URINE NEGATIVE (NEGATIVE); PH,URINE 5.5 PH (5.0-7.5); PROTEIN,URINE NEGATIVE (NEGATIVE); UROBILINOGEN,URINE 0.2 (NORMAL) E.U./dL (NORMAL)
[2023-10-11 13:25] LABS: CLARITY,URINE CLEAR (CLEAR)
[2023-10-11] MEDS ORDERED: diazePAM INJ 5 MG/ML SYRINGE IVP STA ×2 (13:28→15:14)
[2023-10-11] MEDS ORDERED: SODIUM CHLORIDE 0.9% 1,000 ML IV STA (13:29)
[2023-10-11 13:33] LABS: AMPHETAMINE SCREEN,URINE NEGATIVE (NEGATIVE); BARBITURATE SCREEN,UR NEGATIVE (NEGATIVE); BENZODIAZEPINES SCREEN, URINE NEGATIVE (NEGATIVE); COCAINE SCREEN URINE NEGATIVE (NEGATIVE); METHADONE SCREEN, URINE NEGATIVE (NEGATIVE); METHAMPHETAMINES SCREEN, URINE NEGATIVE (NEGATIVE); OPIATE SCREEN, URINE NEGATIVE (NEGATIVE); OXYCODONE SCREEN, URINE NEGATIVE (NEGATIVE); PROPOXYPHENE SCREEN, URINE NEGATIVE (NEGATIVE); THC CANNABINOID SCREEN, URINE NEGATIVE (NEGATIVE); TRICYCLIC ANTIDEPRESSANT,URINE NEGATIVE (NEGATIVE)
[2023-10-11 13:47] LABS: BASOPHILS % (AUTO) 0.2 %; HCT - HEMATOCRIT 50.5 % (37.0-47.0); HGB - HEMOGLOBIN 15.9 g/dL (12.0-16.0); LYMPHOCYTES # (AUTO) 0.6 10^3/uL (1.5-3.5); LYMPHOCYTES % (AUTO) 4.9 %; MEAN CORPUSCULAR HEMOGLOBIN 31.7 pg (27.0-31.0); MEAN CORPUSCULAR HGB CONC 31.5 g/dL (32.0-36.0); MEAN CORPUSCULAR VOLUME 100.8 fL (81.0-99.0); MEAN PLATELET VOLUME 10.2 fL (7.9-10.8); MONOCYTES # (AUTO) 0.6 10^3/uL (0.0-1.0); MONOCYTES % (AUTO) 5.3 %; NEUTROPHILS # (AUTO) 10.2 10^3/uL (1.5-6.6); NEUTROPHILS % (AUTO) 89.1 %; PLT - PLATELET COUNT 222 10^3/uL (130-450); RED BLOOD COUNT 5.01 10^6/uL (4.20-5.40); RED CELL DISTRIBUTION WIDTH 14.9 % (12.0-15.0); WHITE BLOOD COUNT 11.5 x10^3/uL (4.8-10.8)
[2023-10-11] MEDS ORDERED: DROPERIDOL 5 MG/2 ML VIAL IVP STA (14:22)
[2023-10-11 14:27] LABS: ACETAMINOPHEN 1.3 ug/mL; ALBUMIN 4.2 g/dL (3.2-5.5); ETOH - ETHANOL < 10.0 mg/dL; LIPASE 25 U/L (11-82); MAGNESIUM 2.1 mg/dL (1.7-2.3)
[2023-10-11 14:28] LABS: ALBUMIN/GLOBULIN RATIO 1.6 (1.0-2.2); ALKALINE PHOSPHATASE 120 IU/L (42-121); ALT ALANINE AMINOTRANSFERASE 67 IU/L (10-60); AST ASPARTATE AMINOTRANSFERASE 92 IU/L (10-42); BILIRUBIN,TOTAL 0.7 mg/dL (0.2-1.0); BUN - BLOOD UREA NITROGEN 13 mg/dL (6-20); CALCIUM 9.5 mg/dL (8.5-10.3); CARBON DIOXIDE - CO2 19 mmol/L (21-32); CHLORIDE 103 mmol/L (101-111); CREATININE 0.9 mg/dL (0.6-1.3); GFR - MDRD 62 (>89); GLUCOSE 107 mg/dL (74-104); POTASSIUM 3.4 mmol/L (3.5-4.5); SALICYLATE < 1.5 mg/dL; SODIUM 142 mmol/L (135-145); TOTAL PROTEIN 6.9 g/dL (6.4-8.9)
[2023-10-11] MEDS ORDERED: iohexoL-300 100 ML VIAL IVP ONE (17:11)
--- NOTE | 2023-10-11 17:27 | CT Report ---
PROCEDURE: CT Angio Head/Neck INDICATIONS: aphasia and confusion acute this AM TECHNIQUE: Helical axial CT of the head and neck was obtained during the arterial phase of a intrave nous contrast injection utilizing an angiographic protocol. Multiplanar traditional and MIP reformat s were also obtained. COMPLIANCE STATEMENTS: Any estimate of proximal ICA stenosis was calculated using NASCET guidelines. Dose reduction techniques included either automated exposure control or adjustment of exposure prasanth eters. COMPARISON: None. FINDINGS: Image quality: Mild limitation from motion artifact Cerebral CT Angiogram: Internal carotid arteries: No acute findings. Intracranial ICA are patent with no significant steno sis. No occlusion. No aneurysm. Anterior cerebral arteries: Unremarkable. No significant stenosis. No occlusion. No aneurysm. Middle cerebral arteries: Unremarkable. No significant stenosis. No occlusion. No aneurysm. Posterior cerebral arteries: Unremarkable. No significant stenosis. No occlusion. No aneurysm. Basilar artery: Unremarkable. No significant stenosis. No occlusion. No aneurysm. Vertebral arteries: Unremarkable as visualized. Dural venous sinuses: Unremarkable given phase of enhancement. Other: Arterial phase the brain shows right frontal old infarct. Neck CT Angiogram: Internal carotid arteries: Tortuous cervical ICA are medialized in the retropharyngeal space in the m idneck. Atherosclerotic plaque in both proximal ICA without significant stenosis Common carotid arteries: Unremarkable. No significant stenosis. No dissection or occlusion. External carotid arteries: Unremarkable. No occlusion. Vertebral arteries: Unremarkable. No significant stenosis. No dissection or occlusion. Aortic Arch and Mediastinum: Partially visualized aortic arch unremarkable without evidence of aneury sm. Origins of the great vessels unremarkable. Other: Arterial phase soft tissues of the neck are unremarkable. Degenerative disc disease and arthro landon in the cervical spine results in grade 1 anterior spinal listhesis C4-5 IMPRESSION: No evidence of large vessel occlusion, aneurysm or vascular malformation. Minimal limitation from motion artifact Degenerative disc disease and arthropathy in the cervical spine Reviewed by: Vikash Padron MD on 10/11/2023 4:26 PM [place] Approved by: Vikash Padron MD on 10/11/2023 4:26 PM AKST Station ID: [id number]
--- NOTE | 2023-10-11 17:33 | CT Report ---
PROCEDURE: CT brain without contrast INDICATIONS: aphasia and confusion TECHNIQUE: Helical axial CT of the brain was obtained without contrast and reformatted in multiple p lanes. Radiation dose reduction was achieved using automated exposure control or adjustment of mA and /or kV according to patient size. COMPARISON: 10/11/2023 at 1241 hours FINDINGS: Image quality: Mildly limited by motion artifact CSF spaces: Ventricles are appropriate in size and position. No hydrocephalus. Basal cisterns unre markable. Brain: No midline shift. No intracranial masses or hemorrhage. Swanson-white matter interface is norm al. Persistent old right frontal MINNIE infarct. No intracranial hemorrhage or mass effect Skull and face: Calvarium and skull base are unremarkable without suspicious lesion. Sinuses: Visualized sinuses and mastoids are clear. IMPRESSION: Old right MINNIE infarct. No intracranial hemorrhage or mass effect. Reviewed by: Vikash Padron MD on 10/11/2023 4:32 PM [place] Approved by: Vikash Padron MD on 10/11/2023 4:32 PM AKST Station ID: [id number]
[2023-10-11] MEDS ORDERED: LORazepam 2 MG/ML VIAL IVP STA (18:01)
[2023-10-11] MEDS ORDERED: LACTATED RINGERS 1,000 ML IV STA ×2 (18:01→19:19)
[2023-10-11] MEDS ORDERED: METOPROLOL 5 MG/5 ML VIAL IVP STA ×2 (18:02→19:17)
[2023-10-11] MEDS ORDERED: MORPHINE 2 MG/ML CARPUJECT IVP STA (18:03)
[2023-10-11] MEDS: LACTATED RINGERS 1,000 ML IV STA ×2 (20:01→22:57)
[2023-10-11] MEDS: METOPROLOL 5 MG/5 ML VIAL IVP SCH (21:01)
[2023-10-11] MEDS ORDERED: ASPIRIN 300 MG SUPP PR STA (21:30)
[2023-10-12] MEDS: LORazepam 2 MG/ML VIAL IVP PRN ×3 (01:36→10:35)
[2023-10-12] MEDS: LACTATED RINGERS 1,000 ML IV STA (03:01)
[2023-10-12] MEDS ORDERED: ASPIRIN EC 81 MG TABLET PO SCH (09:00)
[2023-10-12] MEDS ORDERED: CLOPIDOGREL 75 MG TABLET PO SCH (09:00)
[2023-10-12] MEDS ORDERED: SODIUM CHLORIDE FLUSH 0.9% 10 ML SYRINGE IVP PRN (09:19)
[2023-10-12] MEDS ORDERED: ACETAMINOPHEN 325 MG TABLET PO PRN (09:19)
[2023-10-12] MEDS ORDERED: ONDANSETRON 4 MG/2 ML VIAL IVP PRN (09:19)
[2023-10-12] MEDS: carvediloL 12.5 MG TABLET PO SCH ×2 (10:35→21:15)
[2023-10-12] MEDS: CLOPIDOGREL 75 MG TABLET PO SCH (10:35)
[2023-10-12] MEDS: ASPIRIN EC 81 MG TABLET PO SCH (10:36)
[2023-10-12] MEDS: METOPROLOL 5 MG/5 ML VIAL IVP SCH ×2 (10:36→21:16)
--- NOTE | 2023-10-12 10:50 | ED Physician Documentation ---
ED Addendum - Addendum Addendum: 10/12/23 10:47 The patient had been sleeping upon change of shift and for the next couple of hours. I did rouse her briefly and there seem to be just some verbal attempt now with some still responsiveness to handgrip. However not complete sentences and just occasional words. MRI is scheduled for this morning around 1130. I did talk with the hospitalist as we now have beds available this morning. Orders will be written. The patient's sister who is a nurse came into visit with her shortly ago. At this point rousing the patient, she is able to actually talk in complete sentences. Not as clear memory of the events from the last day. She is able to follow commands directly and answer questions appropriately. This is quite a significant improvement now just over the last couple of hours and had been having just very minor improvement earlier this morning. The patient is given at a dose of Ativan as she is reportedly claustrophobic. The MRI is still planned for later this morning. Report is being given by nursing. We still will want OT and PT assessments. At this point we have not tried ambulating her etc. Further assessment is still needed in the MRI.
--- NOTE | 2023-10-12 12:20 | MRI Report ---
PROCEDURE: BRAIN WO INDICATIONS: aphasia, confused, consider CVA TECHNIQUE: Noncontrast axial T1 spin echo, axial T2 fast spin echo, sagittal and axial FLAIR, coronal T2 fast sp in echo, axial gradient echo, axial diffusion and ADC through the brain. COMPARISON: CT head October 11, 2023 FINDINGS: Image quality: Images are degraded by patient motion. CSF Spaces: Basal cisterns are patent. No extra-axial fluid collections. Ventricles are normal in size and shape. Brain: Encephalomalacia within the right frontal lobe. T2/FLAIR hyperintensity in the periventricula r and subcortical white matter most prominent within the left gutierrez radiata without restricted diffu sipke to suggest active ischemia. No intracranial masses or hemorrhage. Swanson/white matter interface i s normal. Brainstem appears normal. Diffusion-weighted images demonstrate no acute ischemic insult. Normal intravascular flow voids are present. Skull and face: Calvarium has normal marrow signal. Orbits appear normal. Sinuses: Sinuses and mastoids are clear. IMPRESSION: Sequela of chronic microvascular ischemic disease and remote right frontal lobe infarct. No restricted diffusion to suggest active ischemia. Reviewed by: Ramon Reis MD on 10/12/2023 11:19 AM [facility] Approved by: Ramon Reis MD on 10/12/2023 11:19 AM [facility] Station ID: [id number]
--- NOTE | 2023-10-12 17:34 | HISTORY & PHYSICAL EXAMINATION ---
Chief Complaint - Chief Complaint Chief Complaint: Aphasia, confusion History of Present Illness - Admitted From Admitted From:: ED - History Obtained From History obtained from: ED provider, patient, patient's sister (an RN) - History of Present Illness HPI Comment/Other: This is an 67-year-old female who lives alone, and has a remote Hx of alcoholism, per the family. There is a history of 3 prior CVAs that left her with short term memory difficulty. She has a history of CAD with stents. The patient is checked on frequently by her siblings (2 sisters and a brother) and by her niece. Yesterday 10/11, the family found her at home, unable to speak and was confused, agitated and had jerking movements and called EMS. They last saw her at her baseline noon of the previous day. From what was seen in the house, the patient was able to have breakfast that morning and then was aphasic and confused following that, therefore the interval between last known well and presentation to the ED was approximately 5 hours. In the ED she was agitated, and aphasic. She underwent a stat CT head, and CTA head and neck which showed an old CVA but no new findings, no hemorrhage, no large vessel occlusion. Telestroke was contacted, and an MRI brain was recommended. Telestroke said no transfer was needed and that no intervention would be done due to time of presentation being >5 hours. BP in ER 180/122. The patient spent the night last night in the ER because there were no open hospital beds. At 1030 this morning her sister (an RN) came to visit her in the ER and reports that the patient was able to say 2 word sentences. The ED provider, Dr. Green spoke to me about this patient. She will be admitted for managing a stroke. The MRI is still pending. I spoke to her about her CODE BLUE wishes and the patient thinks that she has already completed a POLST form and knows has a DPOA. Our records show that her brother Yannick is her DPOA, but there is no POLST form, only Advanced Directives, that say not to prolong her life if she is in a vegetative state. I called her DPOA Yannick Camarena, and asked what his wishes would be for her now, regarding CODE STATUS, and he said she is a Full Code. History - Past Medical History Cardiovascular: reports: Hypertension, Coronary artery disease (wit stents), MD Neuro: reports: CVA Endocrine/Autoimmune: reports: None Psych: reports: Depression, Other (Alcohol and drug abuse, needed detox 5 yrs ago at [facility], then again 3 yrs ago at [facility]) - Past Surgical History Cardiovascular: reports: Coronary stent - Family & Social History Family History Comment/Other: She has 2 children who are healthy. Living arrangement: At home Living Situation: Alone Social History Notes: Sister reports she is a "lifelong alcoholic" who quit completely 3 years ago. She also was a drug addict (when her was dying, she was taking his narcotics), went through withdrawal and detox 5 years ago and then again 3 years ago. Has not used drugs or alcohol for 3 years. Her 5 years ago. 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 She lives alone. She quit smoking 40 years ago. - Substance History Use: Uses substance without health or social issues: NONE - POLST Patient has POLST: No Meds/Allgy - Home Medications Home Medications: Ambulatory Orders Medication Instructions Recorded Confirmed Carvedilol 25 mg PO BID 11/02/18 10/11/23 lisinopriL [Prinivil] 5 mg PO DAILY 11/02/18 10/11/23 Aspirin [Aspirin EC] 81 mg PO DAILY 10/11/23 10/11/23 - Allergies Allergies/Adverse Reactions: Allergies Allergy/AdvReac Type Severity Reaction Status Date / Time No Known Drug Allergies Allergy Verified 10/11/23 13:13 Review of Systems - Constitutional Constitutional: reports: Weakness - Neurological Neurological: reports: Memory problems, Pre-existing deficit, Incoordination, Slurred speech - All Other Systems All Other Systems: reports: Reviewed and negative Exam - Vital Signs Reviewed Vital Signs: Yes Vital Signs: Vital Signs x48h Temp Pulse Pulse Resp BP BP Pulse Ox 10/12/23 16:53 36.0 C L 100 20 106/70 91 L 10/12/23 12:21 365 C H 83 20 140/90 H 92 10/12/23 10:42 10/12/23 10:24 98 16 126/64 93 10/12/23 09:37 105 H 17 101/51 L 94 O2 Flow Rate 10/12/23 16:53 10/12/23 12:21 10/12/23 10:42 2 10/12/23 10:24 10/12/23 09:37 - Physical Exam General Appearance: positive: No acute distress, Other (Disheveled, obese, and appears older than her age) Eyes Bilateral: positive: Normal inspection, EOMI ENT: positive: Other (Left facial droop) Neck: positive: Nml inspection, No JVD Respiratory: positive: No respiratory distress, Breath sounds nml Cardiovascular: positive: Regular rate & rhythm, No murmur Abdomen: positive: Non-tender, Nml bowel sounds, No distention, Other (Obese) Skin: positive: Warm, Dry Extremities: positive: Non-tender, No pedal edema Neurologic/Psychiatric: positive: Other (Poor memory. Left facial droop. Left arm str 4/5. Left leg str 4/5) Conclusion/Plan - Problem List (1) RIND (reversible ischemic neurologic deficit) Conclusion/Plan: MRI still pending. The patient's speech is improving at 24 hours after LKW and she is speaking in sentences. Plan: Await the MRI images for diagnosis>> No new stroke is seen, the old stroke is seen. This is therefore a RIND and not a completed stroke. Place on telemetry to watch for A-fib Allow 24-hour permissive hypertension Swallow eval by nursing then start a diet Neurochecks every 4 hours Await reconciled med list to start her meds Continue with aspirin and Plavix Start high-dose statin. Check lipid panel in a.m. and adjust cholesterol meds per results Obtain an Echo with saline study to eval for clot or shunt (today is Saturday and we have no refurbish technician here until Saturday) PT and OT and Speech Therapy eval and tx (2) Hypertension Conclusion/Plan: Patient has a history of hypertension and was hypertensive in the ER Plan: We will allow 24 hours of permissive hypertension Await her reconciled med list to resume appropriate meds (3) History of alcohol abuse Conclusion/Plan: Her last alcohol intake was 3 years ago per family. She had a toxicology screen that showed no alcohol present. AST and ALT are elevated as well as her MCV however Plan: Will order daily vitamin and thiamine p.o. Obtain INR Check B12 and folate levels given the high MCV (4) Presence of stent in coronary artery in patient with coronary artery disease Conclusion/Plan: Plan: Await her reconciled med list to start her cardiac meds - Lab Results Fish Bones: 10/11/23 13:41 10/11/23 13:41 - Diagnostic Imaging Results Diagnostic Imaging Results: positive: Final report reviewed - Other Other Results/Comments: Attestation: The patient is expected to be hospitalized for > 2 midnights and is expected to be discharged or transferred to another facility within 96 hours: Yes.
[2023-10-12] MEDS: SODIUM CHLORIDE FLUSH 0.9% 10 ML SYRINGE IVP SCH (18:59)
[2023-10-12] MEDS ORDERED: ATORVASTATIN 40 MG TABLET PO SCH (21:00)
[2023-10-13] MEDS: SODIUM CHLORIDE FLUSH 0.9% 10 ML SYRINGE IVP SCH ×3 (05:01→17:30)
[2023-10-13 05:26] LABS: HCT - HEMATOCRIT 40.1 % (37.0-47.0); HGB - HEMOGLOBIN 12.8 g/dL (12.0-16.0); MEAN CORPUSCULAR HEMOGLOBIN 31.8 pg (27.0-31.0); MEAN CORPUSCULAR HGB CONC 31.9 g/dL (32.0-36.0); MEAN CORPUSCULAR VOLUME 99.5 fL (81.0-99.0); RED BLOOD COUNT 4.03 10^6/uL (4.20-5.40); RED CELL DISTRIBUTION WIDTH 14.7 % (12.0-15.0); WHITE BLOOD COUNT 6.1 x10^3/uL (4.8-10.8)
[2023-10-13 05:39] LABS: ALBUMIN/GLOBULIN RATIO 1.5 (1.0-2.2); ALKALINE PHOSPHATASE 87 IU/L (42-121); ALT ALANINE AMINOTRANSFERASE 43 IU/L (10-60); AST ASPARTATE AMINOTRANSFERASE 60 IU/L (10-42); BILIRUBIN,TOTAL 0.8 mg/dL (0.2-1.0); BUN - BLOOD UREA NITROGEN 11 mg/dL (6-20); CALCIUM 8.6 mg/dL (8.5-10.3); CARBON DIOXIDE - CO2 29 mmol/L (21-32); CHLORIDE 100 mmol/L (101-111); CHOL/HDL RATIO 2.3 (<4.4); CHOLESTEROL 167 mg/dL; CREATININE 0.7 mg/dL (0.6-1.3); GFR - MDRD 83 (>89); GLUCOSE 95 mg/dL (74-104); HDL CHOLESTEROL 73 mg/dL; LDL CHOLESTEROL,CALCULATED 67 mg/dL; LDL/HDL RATIO 0.9 (<4.4); POTASSIUM 2.6 mmol/L (3.5-4.5); SODIUM 137 mmol/L (135-145); TRIGLYCERIDES 136 mg/dL (48-352); VLDL CHOLESTEROL 27 mg/dL
[2023-10-13 06:04] LABS: INR 1.1 (0.8-1.2); PT - PROTHROMBIN TIME 11.8 secs (9.9-12.6)
[2023-10-13] MEDS: PRENATAL VITAMIN TABLET PO SCH (08:16)
[2023-10-13] MEDS: THIAMINE 100 MG TABLET PO SCH (08:17)
[2023-10-13] MEDS: ASPIRIN EC 81 MG TABLET PO SCH (08:17)
[2023-10-13] MEDS: carvediloL 3.125 MG TABLET PO SCH ×2 (08:17→21:41)
[2023-10-13] MEDS: CLOPIDOGREL 75 MG TABLET PO SCH (08:17)
--- NOTE | 2023-10-13 08:21 | PROVIDER PROGRESS NOTE ---
Assessment/Plan - Problem List (1) RIND (reversible ischemic neurologic deficit) Assessment/Plan: Per family, she has had 3 prior strokes which left her with poor memory. Today I learned she still drives. MRI this adm showed no new stroke, the old stroke was seen. This is therefore a RIND and not a completed stroke. The patient's speech improved at 24 hours after LKW and she is speaking in sentences. Today her L facial droop has resolved She got high-dose statin last night. Her lipid panel came back showing LDL of 67 (and she was on no chol meds at home) Plan: Remain on telemetry to watch for A-fib Neurochecks every 4 hours Continue with aspirin and Plavix Decrease Lipitor from 80 to 20 qpm Awaiting an Echo with saline study to eval for clot or shunt (today is Saturday and we have no technician terminal and repeater here until Saturday) PT and OT and Speech Therapy eval and tx planned (but we have none of those 3 rehab services today, it is Sun). Depending on OT and a mini mental exam, she may not be able to drive any longer. I have a suspicion she was not taking her medications properly (since, on her BP meds here, she is hypotensive). More caregiving may be needed after discharge and I suspect she will need Home Health for rehab after this stroke. I discussed this with SW today. (2) Hx Hypertension Conclusion/Plan: Patient has a history of hypertension and was hypertensive in the ER. We allowed 24 hours of permissive hypertension Today her BP is 94/58 Her reconciled med list shows she was on Coreg 25 twice daily and Lisinopril daily. I have a suspicion she was not taking her medications at all since, with meds here she is hypotensive Plan: I will stop the IV twice daily Lopressor that was ordered by the ER provider Decrease Coreg dose substantially down to 3.125 twice daily, parameters to hold entered aklso I will not resume Lisinopril yet Awaiting an Echo regarding her LVEF to determine what combination of BP and cardiac meds she should be on (3) Hypokalemia Conclusion/Plan: My suspision is poor nutrition os the cause Plan: Replace with po KCl Follow BMP daily (4) Presence of stent in coronary artery in patient with coronary artery disease Conclusion/Plan: There is a history of an RI, and her med list shows she was on Coreg and Lisinopril, therefore her LVEF may be low. We have no old Echo results in our facility here Plan: I will decrease but cont the statin, continue aspirin and Plavix, decrease her Coreg dose to 3.125 twice daily because of hypotension, and not restart the Lisinopril yet today Awaiting Echo to check LVEF to determine what combination of BP and cardiac meds that she should be on (5) History of alcohol abuse Conclusion/Plan: There was a remote history of drug abuse and alcohol abuse. Her last alcohol intake was 3 years ago per family. She had a toxicology screen at adm, that showed no alcohol present. Adm labs showed her AST and ALT were elevated as well as her MCV INR was done which came back normal at 1.1. B12 level is high, folate is normal. Plan: Cont daily vitamin and thiamine p.o. - Current Meds Current Meds: Current Medications Generic Name Dose Route Start Last Admin Trade Name Freq PRN Reason Stop Dose Admin Aspirin 81 mg 10/12/23 10:00 10/12/23 10:36 Aspirin Ec 81 Mg Tablet PO 81 mg DAILY VALERIANO Administration Atorvastatin Calcium 80 mg 10/12/23 21:00 10/12/23 21:15 Atorvastatin 40 Mg Tablet PO 80 mg QPM VALERIANO Administration Clopidogrel Bisulfate 75 mg 10/12/23 10:00 10/12/23 10:35 Clopidogrel 75 Mg Tablet PO 75 mg DAILY VALERIANO Administration Lorazepam 1 mg 10/11/23 19:18 10/12/23 10:35 Lorazepam 2 Mg/Ml Vial IVP 1 mg Q2H PRN Administration Agitation Sodium Chloride 10 ml 10/12/23 17:00 10/13/23 05:01 Sodium Chloride Flush 0.9% 10 Ml Syringe IVP 10 ml 0100,0900,1700 VALERIANO Administration - Lab Result Fish Bone Diagrams: 10/13/23 05:03 10/13/23 05:03 - Additional Planning My Orders: My Active Orders 10/12/23 09:19 Activity Orders [RC] Q2HR IO [RC] IOSHIFT Incentive Spirometry - RT [RC] TID Initiate Bowel Care Protocol [RC] .protocol Initiate Line Care Protocol [RC] QSHIFT Initiate Personal Care Protoco [RC] .protocol Oxygen Therapy [RC] .PRN Telemetry- [RC] Q4HR Vital Signs [RC] Q4HR Acetaminophen [Tylenol] 650 mg PO Q4HR PRN Ondansetron Inj [Zofran Inj] 4 mg IVP Q6HR PRN Sodium Chloride Flush 0.9% [Normal Saline Flush 0.9%] 10 ml IVP PRN PRN Code Status [OTHERS] Routine Condition of Patient [OTHERS] Routine DVT Prophylaxis [OTHERS] Routine 10/12/23 09:21 Daily Weight [RC] 0600 SCDs [RC] QSHIFT Evaluate and Treat OT [OT] Routine Evaluate and Treat PT [PT] Routine 10/12/23 10:00 Aspirin EC [Ecotrin] 81 mg PO DAILY Clopidogrel [Plavix] 75 mg PO DAILY 10/12/23 Lunch Low Sodium Diet [DIET] 10/12/23 17:00 Sodium Chloride Flush 0.9% [Normal Saline Flush 0.9%] 10 ml IVP 0100,0900,1700 10/12/23 17:26 Neuro Check [RC] Q4HR 10/12/23 21:00 Atorvastatin [Lipitor] 80 mg PO QPM 10/13/23 08:00 Vitamin [Trinatal Rx 1] 1 tab PO DAILYWM 10/13/23 09:00 Thiamine [Vitamin B-1] 100 mg PO DAILY carvediloL [Coreg] 3.125 mg PO BID 10/15/23 07:00 Echo Complete w/Bubble Study [ECHO] Routine Subjective - Subjective Patient Reports: Feeling Better, Resting Comfortably Objective Vital Signs: Vital Signs - 24 hr 10/12/23 10/12/23 10/12/23 08:46 09:37 10:24 Temperature Heart Rate 104 H 105 H 98 Heart Rate [ Brachial] Respiratory 15 17 16 Rate Blood Pressure 138/70 H 101/51 L 126/64 Blood Pressure [Left Brachial artery] Blood Pressure [Right Brachial artery] O2 Saturation 98 94 93 If not protocol : Oxygen Flow, liters/minute 10/12/23 10/12/23 10/12/23 10:42 12:21 16:53 Temperature 365 C H 36.0 C L Heart Rate Heart Rate [ 83 100 Brachial] Respiratory 20 20 Rate Blood Pressure Blood Pressure [Left Brachial artery] Blood Pressure 140/90 H 106/70 [Right Brachial artery] O2 Saturation 92 91 L If not protocol 2 : Oxygen Flow, liters/minute 11/10/12/23 10/13/23 21:09 21:16 00:28 Temperature 36.3 C L 36.4 C L Heart Rate Heart Rate [ 91 95 Brachial] Respiratory 18 18 Rate Blood Pressure 105/66 Blood Pressure 105/66 124/96 H [Left Brachial artery] Blood Pressure 90/63 [Right Brachial artery] O2 Saturation 91 L 90 L If not protocol : Oxygen Flow, liters/minute 10/13/23 04:50 Temperature 36.6 C Heart Rate Heart Rate [ 87 Brachial] Respiratory 20 Rate Blood Pressure Blood Pressure [Left Brachial artery] Blood Pressure 94/58 L [Right Brachial artery] O2 Saturation 91 L If not protocol : Oxygen Flow, liters/minute Oxygen O2 Source Room air I&O (Last 24 Hrs): Intake and Output Totals x24h 10/11/23 10/12/23 10/13/23 23:59 23:59 23:59 Intake Total 0946.927 9905.666 Balance 2257.992 9939.666 General: Alert, Oriented x3 HEENT: Mucous membr. moist/pink, Other (No facial droop) Neck: Supple, No JVD Neuro: Alert, Non Focal, Other (Speech is clearer, no further facial droop) Cardiovascular: Regular rate Respiratory: No respiratory distress Abdomen: Soft, No tenderness Extremities: No clubbing, No edema, No tenderness/swelling - Results Results: Laboratory Results WBC 6.1 x10^3/uL (4.8-10.8) 10/13/23 05:03 RBC 4.03 10^6/uL (4.20-5.40) L 10/13/23 05:03 Hgb 12.8 g/dL (12.0-16.0) 10/13/23 05:03 Hct 40.1 % (37.0-47.0) 10/13/23 05:03 MCV 99.5 fL (81.0-99.0) H 10/13/23 05:03 MCH 31.8 pg (27.0-31.0) H 10/13/23 05:03 MCHC 31.9 g/dL (32.0-36.0) L 10/13/23 05:03 RDW 14.7 % (12.0-15.0) 10/13/23 05:03 Plt Count 206 10^3/uL (130-450) 10/13/23 05:03 MPV 10.0 fL (7.9-10.8) 10/13/23 05:03 Neut # (Auto) 10.2 10^3/uL (1.5-6.6) H 10/11/23 13:41 Lymph # (Auto) 0.6 10^3/uL (1.5-3.5) L 10/11/23 13:41 [place] # (Auto) 0.6 10^3/uL (0.0-1.0) 10/11/23 13:41 Eos # (Auto) 0.0 10^3/uL (0.0-0.7) 10/11/23 13:41 Baso # (Auto) 0.0 10^3/uL (0.0-0.1) 10/11/23 13:41 Absolute Nucleated RBC 0.00 x10^3/uL 10/11/23 13:41 Nucleated RBC % 0.0 /100WBC 10/11/23 13:41 ESR 5 mm/Hr (0-30) 10/11/23 13:41 PT 11.8 secs (9.9-12.6) 10/13/23 05:03 INR 1.1 (0.8-1.2) 10/13/23 05:03 Sodium 137 mmol/L (135-145) 10/13/23 05:03 Potassium 2.6 mmol/L (3.5-4.5) L 10/13/23 05:03 Chloride 100 mmol/L (101-111) L 10/13/23 05:03 Carbon Dioxide 29 mmol/L (21-32) 10/13/23 05:03 Anion Gap 8.0 (6-13) 10/13/23 05:03 BUN 11 mg/dL (6-20) 10/13/23 05:03 Creatinine 0.7 mg/dL (0.6-1.3) 10/13/23 05:03 Estimated GFR (MDRD) 83 (>89) L 10/13/23 05:03 Glucose 95 mg/dL (74-104) 10/13/23 05:03 POC Whole Bld Glucose 119 mg/dL (70 - 100) H 10/11/23 13:07 Calcium 8.6 mg/dL (8.5-10.3) 10/13/23 05:03 Magnesium 2.1 mg/dL (1.7-2.3) 10/11/23 13:41 Total Bilirubin 0.8 mg/dL (0.2-1.0) 10/13/23 05:03 AST 60 IU/L (10-42) H 10/13/23 05:03 ALT 43 IU/L (10-60) 10/13/23 05:03 Alkaline Phosphatase 87 IU/L (42-121) 10/13/23 05:03 Ammonia 32.4 umol/L (18-72) 10/13/23 05:03 Total Protein 5.0 g/dL (6.4-8.9) L 10/13/23 05:03 Albumin 3.0 g/dL (3.2-5.5) L 10/13/23 05:03 Globulin 2.0 g/dL (2.1-4.2) L 10/13/23 05:03 Albumin/Globulin Ratio 1.5 (1.0-2.2) 10/13/23 05:03 Triglycerides 136 mg/dL (48-352) 10/13/23 05:03 Cholesterol 167 mg/dL (-200) 10/13/23 05:03 LDL Cholesterol, Calc 67 mg/dL (-129) 10/13/23 05:03 VLDL Cholesterol 27 mg/dL 10/13/23 05:03 HDL Cholesterol 73 mg/dL (60-) 10/13/23 05:03 LDL/HDL Ratio 0.9 (<4.4) 10/13/23 05:03 Cholesterol/HDL Ratio 2.3 (<4.4) 10/13/23 05:03 Lipase 25 U/L (11-82) 10/11/23 13:41 Vitamin B12 2725 pg/mL (180-914) H 10/13/23 05:03 Folate 36.4 ng/mL (5.90 - >24.8) 10/13/23 05:03 Urine Color YELLOW 10/11/23 13:15 Urine Clarity CLEAR (CLEAR) 10/11/23 13:15 Urine pH 5.5 PH (5.0-7.5) 10/11/23 13:15 Ur Specific Boyd 1.025 (1.002-1.030) 10/11/23 13:15 Urine Protein NEGATIVE mg/dL (NEGATIVE) 10/11/23 13:15 Urine Glucose (UA) NEGATIVE mg/dL (NEGATIVE) 10/11/23 13:15 Urine Ketones 40 mg/dL (NEGATIVE) H 10/11/23 13:15 Urine Occult Blood NEGATIVE (NEGATIVE) 10/11/23 13:15 Urine Nitrite NEGATIVE (NEGATIVE) 10/11/23 13:15 Urine Bilirubin NEGATIVE (NEGATIVE) 10/11/23 13:15 Urine Urobilinogen 0.2 (NORMAL) E.U./dL (NORMAL) 10/11/23 13:15 Ur Leukocyte Esterase NEGATIVE (NEGATIVE) 10/11/23 13:15 Ur Microscopic Review NOT INDICATED 10/11/23 13:15 Urine Culture Comments NOT INDICATED 10/11/23 13:15 Salicylates < 1.5 mg/dL 10/11/23 13:41 Urine Opiates Screen NEGATIVE (NEGATIVE) 10/11/23 13:15 Ur Oxycodone Screen NEGATIVE (NEGATIVE) 10/11/23 13:15 Urine Methadone Screen NEGATIVE (NEGATIVE) 10/11/23 13:15 Ur Propoxyphene Screen NEGATIVE (NEGATIVE) 10/11/23 13:15 Acetaminophen 1.3 ug/mL 10/11/23 13:41 Ur Barbiturates Screen NEGATIVE (NEGATIVE) 10/11/23 13:15 Ur Tricyclics Screen NEGATIVE (NEGATIVE) 10/11/23 13:15 Ur Phencyclidine Scrn NEGATIVE (NEGATIVE) 10/11/23 13:15 Ur Amphetamine Screen NEGATIVE (NEGATIVE) 10/11/23 13:15 U Methamphetamines Scrn NEGATIVE (NEGATIVE) 10/11/23 13:15 U Benzodiazepines Scrn NEGATIVE (NEGATIVE) 10/11/23 13:15 Urine Cocaine Screen NEGATIVE (NEGATIVE) 10/11/23 13:15 U Cannabinoids Screen NEGATIVE (NEGATIVE) 10/11/23 13:15 Ethyl Alcohol < 10.0 mg/dL 10/11/23 13:41
[2023-10-13] MEDS ORDERED: POTASSIUM CHLORIDE 10 MEQ CAPSULE PO ONE (12:00)
--- NOTE | 2023-10-13 16:54 | PHARMACY PROGRESS NOTE ---
- Best Possible Medication History Admit Date and Time: 10/12/23918 Processed by: Pharmacy Medication History completed: Yes Patient Interview: Completed (PT INTERVIEWED AND CONFIRMED 3 RX ONLY) As the person ultimately responsible for medication therapy, providers are able to order a medication from an existing home medication list in [facility] via the "Reconcile Routine" prior to Confirmation of that medication by software support specialist. Such practice is discouraged except when the physician, in their clinical judgment, deems that a medical need exists for a medication without regard to previous use.
[2023-10-13] MEDS: ATORVASTATIN 10 MG TABLET PO SCH (21:41)
[2023-10-14] MEDS: SODIUM CHLORIDE FLUSH 0.9% 10 ML SYRINGE IVP SCH ×3 (05:28→20:41)
[2023-10-14] MEDS: ASPIRIN EC 81 MG TABLET PO SCH (08:09)
[2023-10-14] MEDS: carvediloL 3.125 MG TABLET PO SCH ×2 (08:09→20:42)
[2023-10-14] MEDS: PRENATAL VITAMIN TABLET PO SCH (08:09)
[2023-10-14] MEDS: THIAMINE 100 MG TABLET PO SCH (08:09)
[2023-10-14] MEDS: CLOPIDOGREL 75 MG TABLET PO SCH (08:09)
[2023-10-14 13:07] LABS: ALBUMIN 3.9 g/dL (3.2-5.5); ALBUMIN/GLOBULIN RATIO 1.6 (1.0-2.2); BILIRUBIN,TOTAL 0.6 mg/dL (0.2-1.0); CALCIUM 9.7 mg/dL (8.5-10.3); CREATININE 0.6 mg/dL (0.6-1.3); TOTAL PROTEIN 6.4 g/dL (6.4-8.9)
--- NOTE | 2023-10-14 15:45 | PROVIDER PROGRESS NOTE ---
Assessment/Plan - Problem List (1) RIND (reversible ischemic neurologic deficit) Assessment/Plan: Per her sister Maris the RN, she has had 3 prior strokes which left her with poor memory. I learned the pt still drives. MRI this adm showed no new stroke, the old stroke was seen. This is therefore a RIND and not a completed stroke. The patient's speech improved at 24 hours after LKW and she is speaking in sentences. By 48 hrs her L facial droop resolved. She got high-dose statin at adm. Her lipid panel came back showing LDL of 67 (and she was on no chol meds at home) PT saw her today and reported she has recovered and does not need PT. Awaiting Speech Therapy, eval pending. OT did a cognitive eval and she scored 16/30 , I had a suspicion she was not taking her medications properly (since, after we gave her the reconciled Coreg dose of 25 mg here, she was hypotensive). Today the patient revealed that she was only taking vitamins, no prescription meds, and she has seen no doctor for 2 years (since Dr Christine left) Plan: Remain on telemetry to watch for A-fib Neurochecks every 4 hours Continue with aspirin and Plavix Remain on Lipitor 20 qpm Awaiting an Echo with saline study to eval for clot or shunt (today is Saturday and we have no bottle house quality control technician here until Saturday) She should not be driving, a DMV form was submitted to today. I updated the other sister and niece in the room today, instructing that she needs daily checks if she has taken her meds, and assist driving, etc. (2) Hx Hypertension Conclusion/Plan: Patient has a history of hypertension and was hypertensive in the ER. We allowed 24 hours of permissive hypertension Her reconciled med list shows she was on Coreg 25 twice daily and Lisinopril daily.After we gave her the Coreg dose of 25 mg here, she was hypotensive at 90/40. I had a suspicion she was not taking her medications at all and today the pt confirmed that; she was only taking supplements Plan: I decreased Coreg substantially down to 3.125 twice daily, parameters to hold entered also I did not resume Lisinopril yet Awaiting an Echo regarding her LVEF to determine what combination of BP and cardiac meds she should be on (3) Hypokalemia Conclusion/Plan: My suspision is poor nutrition was the cause Plan: Replace with po KCl Follow BMP daily (4) Presence of stent in coronary artery in patient with coronary artery disease Conclusion/Plan: There is a history of an [place], and her med list shows she used to be on Coreg and Lisinopril, therefore her LVEF may be low. We have no old Echo results in our facility here Plan: Cont the statin, continue aspirin and Plavix, cont lower Coreg dose of 3.125 twice daily because of hypotension, and not restart the Lisinopril yet Awaiting Echo to check LVEF to determine what combination of BP and cardiac meds she should be on (5) History of alcohol abuse Conclusion/Plan: There was a remote history of drug abuse and alcohol abuse. Her last alcohol intake was 3 years ago per family. She had a toxicology screen at adm, that showed no alcohol present. Adm labs showed her AST and ALT were elevated as well as her MCV INR was done which came back normal at 1.1. B12 level is high, folate is normal. Plan: Cont daily vitamin and thiamine p.o. - Current Meds Current Meds: Current Medications Generic Name Dose Route Start Last Admin Trade Name Tommyq PRN Reason Stop Dose Admin Aspirin 81 mg 10/12/23 10:00 10/14/23 08:09 Aspirin Ec 81 Mg Tablet PO 81 mg DAILY VALERIANO Administration Atorvastatin Calcium 20 mg 10/13/23 21:00 10/13/23 21:41 Atorvastatin 10 Mg Tablet PO 20 mg QPM VALERIANO Administration Carvedilol 3.125 mg 10/13/23 09:00 10/14/23 08:09 Carvedilol 3.125 Mg Tablet PO 3.125 mg BID VALERIANO Administration Clopidogrel Bisulfate 75 mg 10/12/23 10:00 10/14/23 08:09 Clopidogrel 75 Mg Tablet PO 75 mg DAILY VALERIANO Administration Multivit/Folic Acid/Iron 1 tab 10/13/23 08:00 10/14/23 08:09 Vitamin Tablet PO 1 tab DAILYWM VALERIANO Administration Sodium Chloride 10 ml 10/12/23 17:00 10/14/23 08:09 Sodium Chloride Flush 0.9% 10 Ml Syringe IVP 10 ml 0100,0900,1700 VALERIANO Administration Thiamine HCl 100 mg 10/13/23 09:00 10/14/23 08:09 Thiamine 100 Mg Tablet PO 100 mg DAILY VALERIANO Administration - Lab Result Fish Bone Diagrams: 10/13/23 05:03 10/14/23 12:47 - Additional Planning My Orders: My Active Orders 10/13/23 21:00 Atorvastatin [Lipitor] 20 mg PO QPM 10/14/[address] [ST] Routine 10/15/23 05:00 CMP [COMPREHENSIVE METABOLIC PANEL] [CHEM] DAILYLAB 10/15/23 07:00 Echo Complete w/Bubble Study [ECHO] Routine Subjective - Subjective Patient Reports: Resting Comfortably, No Complaints Objective Vital Signs: Vital Signs - 24 hr 10/13/23 10/13/23 10/14/23 15:37 20:48 01:00 Temperature 36.4 C L 36.6 C 36.6 C Heart Rate [ 103 H 115 H 97 Brachial] Respiratory 16 16 20 Rate Blood Pressure [Left Brachial artery] Blood Pressure 117/85 H 134/90 H 128/91 H [Right Brachial artery] O2 Saturation 92 91 L 93 10/14/23 10/14/23 10/14/23 04:58 07:40 09:00 Temperature 36.7 C 36.6 C 36.6 C Heart Rate [ 86 93 95 Brachial] Respiratory 16 18 18 Rate Blood Pressure 157/91 H 157/91 H [Left Brachial artery] Blood Pressure 153/82 H [Right Brachial artery] O2 Saturation 94 92 94 10/14/23 13:00 Temperature 36.7 C Heart Rate [ 103 H Brachial] Respiratory 18 Rate Blood Pressure [Left Brachial artery] Blood Pressure 129/91 H [Right Brachial artery] O2 Saturation 92 Oxygen O2 Source Room air I&O (Last 24 Hrs): Intake and Output Totals x24h 10/12/23 10/13/23 10/14/23 23:59 23:59 23:59 Intake Total 2741.666 1550 660 Balance 2741.666 1550 660 General: Alert, Other (Oriented x2, did not know date) HEENT: Mucous membr. moist/pink Neck: Supple, No JVD Neuro: Alert, Other (Poor memory) Cardiovascular: Regular rate, No murmurs Respiratory: No respiratory distress, Breath sounds nml Abdomen: Normal bowel sounds, Soft, Other (Obese) Extremities: No clubbing, No edema, No tenderness/swelling - Results Results: Laboratory Results WBC 6.1 x10^3/uL (4.8-10.8) 10/13/23 05:03 RBC 4.03 10^6/uL (4.20-5.40) L 10/13/23 05:03 Hgb 12.8 g/dL (12.0-16.0) 10/13/23 05:03 Hct 40.1 % (37.0-47.0) 10/13/23 05:03 MCV 99.5 fL (81.0-99.0) H 10/13/23 05:03 MCH 31.8 pg (27.0-31.0) H 10/13/23 05:03 MCHC 31.9 g/dL (32.0-36.0) L 10/13/23 05:03 RDW 14.7 % (12.0-15.0) 10/13/23 05:03 Plt Count 206 10^3/uL (130-450) 10/13/23 05:03 MPV 10.0 fL (7.9-10.8) 10/13/23 05:03 Neut # (Auto) 10.2 10^3/uL (1.5-6.6) H 10/11/23 13:41 Lymph # (Auto) 0.6 10^3/uL (1.5-3.5) L 10/11/23 13:41 [place] # (Auto) 0.6 10^3/uL (0.0-1.0) 10/11/23 13:41 Eos # (Auto) 0.0 10^3/uL (0.0-0.7) 10/11/23 13:41 Baso # (Auto) 0.0 10^3/uL (0.0-0.1) 10/11/23 13:41 Absolute Nucleated RBC 0.00 x10^3/uL 10/11/23 13:41 Nucleated RBC % 0.0 /100WBC 10/11/23 13:41 ESR 5 mm/Hr (0-30) 10/11/23 13:41 PT 11.8 secs (9.9-12.6) 10/13/23 05:03 INR 1.1 (0.8-1.2) 10/13/23 05:03 Sodium 141 mmol/L (135-145) 10/14/23 12:47 Potassium 3.0 mmol/L (3.5-4.5) L 10/14/23 12:47 Chloride 102 mmol/L (101-111) 10/14/23 12:47 Carbon Dioxide 31 mmol/L (21-32) 10/14/23 12:47 Anion Gap 8.0 (6-13) 10/14/23 12:47 BUN 11 mg/dL (6-20) 10/14/23 12:47 Creatinine 0.6 mg/dL (0.6-1.3) 10/14/23 12:47 Estimated GFR (MDRD) 99 (>89) 10/14/23 12:47 Glucose 127 mg/dL (74-104) H 10/14/23 12:47 POC Whole Bld Glucose 119 mg/dL (70 - 100) H 10/11/23 13:07 Calcium 9.7 mg/dL (8.5-10.3) 10/14/23 12:47 Magnesium 2.1 mg/dL (1.7-2.3) 10/11/23 13:41 Total Bilirubin 0.6 mg/dL (0.2-1.0) 10/14/23 12:47 AST 63 IU/L (10-42) H 10/14/23 12:47 ALT 56 IU/L (10-60) 10/14/23 12:47 Alkaline Phosphatase 104 IU/L (42-121) 10/14/23 12:47 Ammonia 32.4 umol/L (18-72) 10/13/23 05:03 Total Protein 6.4 g/dL (6.4-8.9) 10/14/23 12:47 Albumin 3.9 g/dL (3.2-5.5) 10/14/23 12:47 Globulin 2.5 g/dL (2.1-4.2) 10/14/23 12:47 Albumin/Globulin Ratio 1.6 (1.0-2.2) 10/14/23 12:47 Triglycerides 136 mg/dL (48-352) 10/13/23 05:03 Cholesterol 167 mg/dL (-200) 10/13/23 05:03 LDL Cholesterol, Calc 67 mg/dL (-129) 10/13/23 05:03 VLDL Cholesterol 27 mg/dL 10/13/23 05:03 HDL Cholesterol 73 mg/dL (60-) 10/13/23 05:03 LDL/HDL Ratio 0.9 (<4.4) 10/13/23 05:03 Cholesterol/HDL Ratio 2.3 (<4.4) 10/13/23 05:03 Lipase 25 U/L (11-82) 10/11/23 13:41 Vitamin B12 2725 pg/mL (180-914) H 10/13/23 05:03 Folate 36.4 ng/mL (5.90 - >24.8) 10/13/23 05:03 Urine Color YELLOW 10/11/23 13:15 Urine Clarity CLEAR (CLEAR) 10/11/23 13:15 Urine pH 5.5 PH (5.0-7.5) 10/11/23 13:15 Ur Specific [place] 1.025 (1.002-1.030) 10/11/23 13:15 Urine Protein NEGATIVE mg/dL (NEGATIVE) 10/11/23 13:15 Urine Glucose (UA) NEGATIVE mg/dL (NEGATIVE) 10/11/23 13:15 Urine Ketones 40 mg/dL (NEGATIVE) H 10/11/23 13:15 Urine Occult Blood NEGATIVE (NEGATIVE) 10/11/23 13:15 Urine Nitrite NEGATIVE (NEGATIVE) 10/11/23 13:15 Urine Bilirubin NEGATIVE (NEGATIVE) 10/11/23 13:15 Urine Urobilinogen 0.2 (NORMAL) E.U./dL (NORMAL) 10/11/23 13:15 Ur Leukocyte Esterase NEGATIVE (NEGATIVE) 10/11/23 13:15 Ur Microscopic Review NOT INDICATED 10/11/23 13:15 Urine Culture Comments NOT INDICATED 10/11/23 13:15 Salicylates < 1.5 mg/dL 10/11/23 13:41 Urine Opiates Screen NEGATIVE (NEGATIVE) 10/11/23 13:15 Ur Oxycodone Screen NEGATIVE (NEGATIVE) 10/11/23 13:15 Urine Methadone Screen NEGATIVE (NEGATIVE) 10/11/23 13:15 Ur Propoxyphene Screen NEGATIVE (NEGATIVE) 10/11/23 13:15 Acetaminophen 1.3 ug/mL 10/11/23 13:41 Ur Barbiturates Screen NEGATIVE (NEGATIVE) 10/11/23 13:15 Ur Tricyclics Screen NEGATIVE (NEGATIVE) 10/11/23 13:15 Ur Phencyclidine Scrn NEGATIVE (NEGATIVE) 10/11/23 13:15 Ur Amphetamine Screen NEGATIVE (NEGATIVE) 10/11/23 13:15 U Methamphetamines Scrn NEGATIVE (NEGATIVE) 10/11/23 13:15 U Benzodiazepines Scrn NEGATIVE (NEGATIVE) 10/11/23 13:15 Urine Cocaine Screen NEGATIVE (NEGATIVE) 10/11/23 13:15 U Cannabinoids Screen NEGATIVE (NEGATIVE) 10/11/23 13:15 Ethyl Alcohol < 10.0 mg/dL 10/11/23 13:41
[2023-10-14] MEDS ORDERED: POTASSIUM CHLORIDE 10 MEQ CAPSULE PO ONE (15:48)
[2023-10-14] MEDS: ATORVASTATIN 10 MG TABLET PO SCH (20:41)
[2023-10-15] MEDS: SODIUM CHLORIDE FLUSH 0.9% 10 ML SYRINGE IVP SCH ×2 (00:38→08:26)
[2023-10-15 06:07] LABS: ALBUMIN 3.4 g/dL (3.2-5.5); ALBUMIN/GLOBULIN RATIO 1.6 (1.0-2.2); BILIRUBIN,TOTAL 0.6 mg/dL (0.2-1.0); CALCIUM 8.9 mg/dL (8.5-10.3); CREATININE 0.5 mg/dL (0.6-1.3); POTASSIUM 3.2 mmol/L (3.5-4.5); TOTAL PROTEIN 5.5 g/dL (6.4-8.9)
[2023-10-15] MEDS: carvediloL 3.125 MG TABLET PO SCH (08:26)
[2023-10-15] MEDS: THIAMINE 100 MG TABLET PO SCH (08:26)
[2023-10-15] MEDS: CLOPIDOGREL 75 MG TABLET PO SCH (08:26)
[2023-10-15] MEDS: PRENATAL VITAMIN TABLET PO SCH (08:26)
[2023-10-15] MEDS: ASPIRIN EC 81 MG TABLET PO SCH (08:26)
--- NOTE | 2023-10-15 17:33 | PROVIDER PROGRESS NOTE ---
Subjective - Prog Note Date Prog Note Date: 10/15/23 Prog Note Time: 17:32 - Subjective Subjective: She is a pleasant but forgetful lady. Occupational Therapy did see her and she is a 16 out of 30 on the dementia scale. She does have resources and family. Current Medications - Current Medications Current Medications: Active Medications Acetaminophen (Acetaminophen 325 Mg Tablet) 650 mg PO Q4HR PRN PRN Reason: Pain 1 to 4, or Fever Aspirin (Aspirin Ec 81 Mg Tablet) 81 mg PO DAILY [facility] Last Admin: 10/15/23 08:26 Dose: 81 mg Atorvastatin Calcium (Atorvastatin 10 Mg Tablet) 20 mg PO QPM [facility] Last Admin: 10/14/23 20:41 Dose: 20 mg Carvedilol (Carvedilol 3.125 Mg Tablet) 3.125 mg PO BID [facility] Last Admin: 10/15/23 08:26 Dose: 3.125 mg Clopidogrel Bisulfate (Clopidogrel 75 Mg Tablet) 75 mg PO DAILY [facility] Last Admin: 10/15/23 08:26 Dose: 75 mg Ondansetron HCl (Ondansetron 4 Mg/2 Ml Vial) 4 mg IVP Q6HR PRN PRN Reason: Nausea / Vomiting Multivit/Folic Acid/Iron ( Vitamin Tablet) 1 tab PO DAILYWM [facility] Last Admin: 10/15/23 08:26 Dose: 1 tab Sodium Chloride (Sodium Chloride Flush 0.9% 10 Ml Syringe) 10 ml IVP PRN PRN PRN Reason: NEEDED PER PROVIDER ORDERS Sodium Chloride (Sodium Chloride Flush 0.9% 10 Ml Syringe) 10 ml IVP 0100,0900,1700 [facility] Last Admin: 10/15/23 08:26 Dose: 10 ml Thiamine HCl (Thiamine 100 Mg Tablet) 100 mg PO DAILY [facility] Last Admin: 10/15/23 08:26 Dose: 100 mg Carvedilol 25 mg PO BID 11/02/18 lisinopriL [Prinivil] 5 mg PO DAILY 11/02/18 Aspirin [Aspirin EC] 81 mg PO DAILY 10/11/23 Objective - Vital Signs/Intake & Output Reviewed Vital Signs: Yes Vital Signs: Vital Signs x48h Temp Pulse Resp BP Pulse Ox 10/15/23 16:25 36.6 C 97 16 150/87 H 93 10/15/23 12:53 36.3 C L 94 16 147/88 H 94 Intake & Output: Intake & Output 10/12/23 10/13/23 10/14/23 10/15/23 23:59 23:59 23:59 23:59 Intake Total 2741.666 1550 1330 480 Output Total 0 Balance 2741.666 1550 1330 480 - Objective General Appearance: positive: Alert Eyes Bilateral: positive: PERRL, EOMI ENT: positive: No signs of dehydration Neck: positive: No JVD Respiratory: positive: No respiratory distress. negative: Wheezes, Rales, Rhonchi Cardiovascular: positive: Regular rate & rhythm Abdomen: positive: Non-tender, Nml bowel sounds, No distention Skin: positive: Warm, Dry Extremities: positive: Full ROM Neurologic/Psychiatric: positive: CN's nml (2-12), Motor nml, Disoriented to time - Lab Results Fish Bones: 10/13/23 05:03 10/15/23 05:11 Other Labs: Lab Results x24hrs 10/15/23 Range/Units 05:11 Sodium 145 (135-145) mmol/L Potassium 3.2 L (3.5-4.5) mmol/L Chloride 107 (101-111) mmol/L Carbon Dioxide 31 (21-32) mmol/L Anion Gap 7.0 (6-13) BUN 11 (6-20) mg/dL Creatinine 0.5 L (0.6-1.3) mg/dL Estimated GFR (MDRD) 122 (>89) Glucose 97 (74-104) mg/dL Calcium 8.9 (8.5-10.3) mg/dL Total Bilirubin 0.6 (0.2-1.0) mg/dL AST 49 H (10-42) IU/L ALT 47 (10-60) IU/L Alkaline Phosphatase 84 (42-121) IU/L Total Protein 5.5 L (6.4-8.9) g/dL Albumin 3.4 (3.2-5.5) g/dL Globulin 2.1 (2.1-4.2) g/dL Albumin/Globulin Ratio 1.6 (1.0-2.2) Assessment/Plan - Problem List (1) RIND (reversible ischemic neurologic deficit) Impression: Per her sister Maris the RN, she has had 3 prior strokes which left her with poor memory. I learned the pt still drives. MRI this adm showed no new stroke, the old stroke was seen. This is therefore a RIND and not a completed stroke. The patient's speech improved at 24 hours after LKW and she is speaking in sentences. By 48 hrs her L facial droop resolved. She got high-dose statin at adm. Her lipid panel came back showing LDL of 67 (and she was on no chol meds at home) PT saw her today and reported she has recovered and does not need PT. Awaiting Speech Therapy, eval pending. OT did a cognitive eval and she scored 16/30 , I had a suspicion she was not taking her medications properly (since, after we gave her the reconciled Coreg dose of 25 mg here, she was hypotensive). Today the patient revealed that she was only taking vitamins, no prescription meds, and she has seen no doctor for 2 years (since Dr Christine left) Plan: Remain on telemetry to watch for A-fib Neurochecks every 4 hours Continue with aspirin and Plavix Remain on Lipitor 20 qpm Awaiting an Echo with saline study to eval for clot or shunt (today is Saturday and we have no instructional support technician here until Saturday) She should not be driving, a DMV form was submitted to today. I updated the other sister and niece in the room today, instructing that she needs daily checks if she has taken her meds, and assist driving, etc. (2) Hx Hypertension Conclusion/Plan: Patient has a history of hypertension and was hypertensive in the ER. We allowed 24 hours of permissive hypertension Her reconciled med list shows she was on Coreg 25 twice daily and Lisinopril daily.After we gave her the Coreg dose of 25 mg here, she was hypotensive at 90/40. I had a suspicion she was not taking her medications at all and today the pt confirmed that; she was only taking supplements Plan: I decreased Coreg substantially down to 3.125 twice daily, parameters to hold entered also I did not resume Lisinopril yet Awaiting an Echo regarding her LVEF to determine what combination of BP and cardiac meds she should be on (3) Hypokalemia Conclusion/Plan: My suspision is poor nutrition was the cause Plan: Replace with po KCl Follow BMP daily (4) Presence of stent in coronary artery in patient with coronary artery disease Conclusion/Plan: There is a history of an [place], and her med list shows she used to be on Coreg and Lisinopril, therefore her LVEF may be low. We have no old Echo results in our facility here Plan: Cont the statin, continue aspirin and Plavix, cont lower Coreg dose of 3.125 twice daily because of hypotension, and not restart the Lisinopril yet Awaiting Echo to check LVEF to determine what combination of BP and cardiac meds she should be on (5) History of alcohol abuse Conclusion/Plan: There was a remote history of drug abuse and alcohol abuse. Her last alcohol intake was 3 years ago per family. She had a toxicology screen at adm, that showed no alcohol present. Adm labs showed her AST and ALT were elevated as well as her MCV INR was done which came back normal at 1.1. B12 level is high, folate is normal. Plan: Cont daily vitamin and thiamine p.o.
--- NOTE | 2023-10-15 17:56 | Discharge Plan ---
Discharge Plan Problem Reviewed?: Yes Disposition: Home, Self Care Condition: Stable Prescriptions: Atorvastatin [Lipitor] 20 mg PO QPM #30 tab Clopidogrel [Plavix] 75 mg PO DAILY #30 tab Thiamine [Vitamin B-1] 100 mg PO DAILY #30 tab Diet: Low Sodium Activity Restrictions: Activity as Tolerated Shower Restrictions: No Driving Restrictions: No Health Concerns: You already have a history of heart disease with hardening of the arteries of your heart as well as an old stroke. You live alone, and someone found you without the ability to speak and you were agitated at home. You came into the hospital and you have improved after we made sure you did not have a massive stroke. We do think you had a mild reversible blockage of the artery to cause her to have symptoms of stroke. We also found to have moderate memory loss. On a scale of 30 points, you only scored 16 points. We think that you have moderate dementia. Plan of Treatment: 1. You are on blood thinners to reduce your risk of stroke. You are also now on a cholesterol pill. Plavix, Lipitor and thiamine was called into [facility]. The thiamine is because you have a folate deficiency. You should also take a vitamin on a regular basis. vitamins have lots of B12 in them. 2. Please see your primary care provider, you go to [facility], in the next 1 to 2 weeks. 3. Please talk to your family about the inevitability of worsening memory loss. Try and figure out a plan about where you will go to live if you can no longer take care of yourself safely. 4. One of your heart tests (the ultrasound called Echocardiogram) does show a small hole in the upper chambers causing blood to go backwards. Sometimes that can increase your risk of stroke. Please have your primary care provider refer you to a canvas [facility] for evaluation to see if anything needs to be done. Care Goals: To remain as independent as possible and in your own home for as long as possible No Smoking: If you smoke, Please STOP! Call for help.
--- NOTE | 2023-10-15 18:02 | DISCHARGE SUMMARY ---
"Discharge Summary Admit Date: 10/12/23 Discharge Date: 10/15/23 Discharging Provider: Cassi Cisse MD Primary Care Provider: [facility] Code Status: Attempt Resuscitation Condition at Discharge: Stable Discharge Disposition: 01 Home, Self Care - DIAGNOSES Discharge Diagnoses with Status of Each Condition: 1. Reversible ischemic neurological deficit 2. Hypertension 3. Hypokalemia 4. Presence of stent in coronary artery in patient with coronary artery disease 5. History of alcohol abuse 6. History of prescription opioid abuse 7. Atrial septal defect on echocardiogram bubble study - HPI History of Present Illness: This is an 67-year-old female who lives alone, and has a remote Hx of alco holism, per the family. There is a history of 3 prior CVAs that left her with short term memory difficulty. She has a history of CAD with stents. The patient is checked on frequently by her siblings (2 sisters and a brother) and by her niece. Yesterday 10/11, the family found her at home, unable to speak and was confused, agitated and had jerking movements and called EMS. They last saw her at her baseline noon of the previous day. From what was seen in the house, the patient was able to have breakfast that morning and then was aphasic and confused following that, therefore the interval between last known well and presentation to the ED was approximately 5 hours. In the ED she was agitated, and aphasic. She underwent a stat CT head, and CTA head and neck which showed an old CVA but no new findings, no hemorrhage, no large vessel occlusion. Telestroke was contacted, and an MRI brain was recommended. Telestroke said no transfer was needed and that no intervention would be done due to time of presentation being >5 hours. BP in ER 180/122. The patient spent the night last night in the ER because there were no open hospital beds. At 1030 this morning her sister (an RN) came to visit her in the ER and reports that the patient was able to say 2 word sentences. The ED provider, Dr. Green spoke to me about this patient. She will be admitted for managing a stroke. The MRI is still pending. I spoke to her about her CODE BLUE wishes and the patient thinks that she has already completed a POLST form and knows has a DPOA. Our records show that her brother Yannick is her DPOA, but there is no POLST form, only Advanced Directives, that say not to prolong her life if she is in a vegetative state. I called her DPOA Yannick Camarena, and asked what his wishes would be for her now, regarding CODE STATUS, and he said she is a Full Code. - Past Medical History Cardiovascular: reports: Hypertension, Coronary artery disease (wit stents), [place] Neuro: reports: CVA Endocrine/Autoimmune: reports: None Psych: reports: Depression, Other (Alcohol and drug abuse, needed detox 5 yrs ago at [facility], then again 3 yrs ago at [facility]) - CONSULTS | PROCEDURES Procedures: Head CT had the quality of the exam significantly degraded by patient motion artifact. She has a right frontal lobe encephalomalacia but no new infarcts or hemorrhage. Angiographic CT head no evidence of large vessel occlusion, aneurysm or vascular malformation. Repeat head CT because of the motion artifact from previous CT was done. She has an old right MINNIE infarct, no intracranial hemorrhage or mass effect. MRI of the brain was done and she has sequela of chronic microvascular ischemic disease and a remote right frontal lobe infarct. No new active ischemia or infarct. Echocardiogram was remarkable for contrast injection of agitated saline being positive for an atrial shunt - HOSPITAL COURSE Hospital Course: This patient may have had a TIA. Reversal symptoms occurred while she was in the hospital. We are encouraging her to see her primary care provider in the [facility] in the next 1 to 2 weeks. We have encouraged her to talk to her family about memory loss and what they can do to help her plan for the future. She does have an echocardiogram that shows a contrast injection of agitated saline to be positive for an atrial shunt. She should be seen by cardiology. Left ventricle was normal with ejection fraction 55%. Right ventricle normal. No significant valvular heart disease. Patient was last seen by Dr. Candace Christine in March 2021. After that time the patient was sent several letters with regards to missed labs, missed appointments, requirements for medication refill, as well as referral for colonoscopy. There is no request of transfer of care in the chart. As such the patient is strongly encouraged to reestablish herrself with a primary care provider in view of the fact that she has moderate dementia on scoring of 16 out of 30. Discharge exam had a temperature of 36.5. Heart rate 99. Blood pressure 139/89. Respirations 20. 94% on room air. She is eating 75 to 100% of her meals. He is able to get up out of her bed, walk to the bathroom and ambulate without assist. Lungs are clear. Regular rate and rhythm. Abdomen is soft and nontender with a bowel movement on the . She is oriented to person, place, time, situation but does demonstrate forgetfulness. She is also deaf. No ataxia. Greater than 30 minutes was spent coordinating discharge This document was made in part using voice recognition software. While efforts are made to proofread this document, sound alike and grammatical errors may occur. - ALLERGIES Allergies/Adverse Reactions: Allergies Allergy/AdvReac Type Severity Reaction Status Date / Time No Known Drug Allergies Allergy Verified 10/11/23 13:13 - MEDICATIONS Home Medications: Ambulatory Orders Medication Instructions Recorded Confirmed Carvedilol 25 mg PO BID 11/02/18 10/11/23 lisinopriL [Prinivil] 5 mg PO DAILY 11/02/18 10/11/23 Aspirin [Aspirin EC] 81 mg PO DAILY 10/11/23 10/11/23 Atorvastatin [Lipitor] 20 mg PO QPM #30 tab 10/15/23 Clopidogrel [Plavix] 75 mg PO DAILY #30 tab 10/15/23 Thiamine [Vitamin B-1] 100 mg PO DAILY #30 tab 10/15/23 - LABS Result Diagrams: 10/13/23 05:03 10/15/23 05:11"
[2023-10-15 18:45] VITALS: BP 139/89; O2SAT 94
[2023-10-15] MEDS: ATORVASTATIN 10 MG TABLET PO SCH (18:46)
== END 2023-10-15 18:52 | disposition home or self-care (01) | DRG 65 ==
LOC: ED 12:32 → MS3 10-12 09:19
PROVIDERS: ADMIT Internal Medicine; ATTEND Specialist
DX: I63.9 Cerebral infarction, unspecified (principal); Q21.10 Atrial septal defect, unspecified; R47.01 Aphasia; R29.810 Facial weakness; R00.0 Tachycardia, unspecified; R41.89 Other symptoms and signs involving cognitive functions and awareness; F40.240 Claustrophobia; I25.2 Old myocardial infarction; R29.707 NIHSS score 7; F03.B0 Unspecified dementia, moderate, without behavioral disturbance, psychotic disturbance, mood disturbance, and anxiety; I10 Essential (primary) hypertension; E87.6 Hypokalemia; I25.10 Atherosclerotic heart disease of native coronary artery without angina pectoris; Z95.5 Presence of coronary angioplasty implant and graft; F10.21 Alcohol dependence, in remission; I69.911 Memory deficit following unspecified cerebrovascular disease; Z87.891 Personal history of nicotine dependence; R41.3 Other amnesia; H91.90 Unspecified hearing loss, unspecified ear; F32.A Depression, unspecified; E66.9 Obesity, unspecified; Z68.34 Body mass index [BMI] 34.0-34.9, adult; I95.9 Hypotension, unspecified; Z91.128 Patient's intentional underdosing of medication regimen for other reason; Z78.1 Physical restraint status
CPT/HCPCS: 36415; 70450; 70496; 70498; 70551; 80053; 80061; 80306; 80307; 81003; 82140; 82607; 82746; 83690; 83735; 85025; 85027; 85610; 85651; 92523; 93005; 93306; 96374; 96375; 96376; 97162; 97166; 99285; A9270; G0480; J2060; J7120; Q9967; 80320; 80329; 81001; 83721; 87086

== ENCOUNTER 2023-10-31 12:31 | Outpatient (CLI) | payer MEDICARE ==
[2023-10-31 18:09] LABS: CALCIUM 9.6 mg/dL (8.5-10.3); CREATININE 0.5 mg/dL (0.6-1.3); POTASSIUM 4.6 mmol/L (3.5-4.5)
== END 2023-10-31 12:32 | disposition home or self-care (01) ==
LOC: LAB.N 12:31
PROVIDERS: ATTEND Family Medicine
DX: I10 Essential (primary) hypertension (principal)
CPT/HCPCS: 36415; 80048

== ENCOUNTER 2024-01-26 12:46 | Outpatient (CLI) | payer MEDICARE | END 2024-01-26 12:47 | disposition E | LOC: EMS 12:46 ==